=== PATIENT | female | born 2005 | race Caucasian/White ===

== ENCOUNTER 2023-05-12 08:18 | Emergency (ER) | payer OTHER, SELFPAY ==
[2023-05-12 08:20] VITALS: BP 140/93; PULSE 89; RESP 16; TEMP 35.6; O2SAT 100; BMI 30.7
--- NOTE | 2023-05-12 08:53 | ED.VIS.GI ---
HPI HPI - GI History of Present Illness Chief Complaint: Abd Pain Narrative Narrative: 18-year-old female present with epigastric pain. She states yesterday she had a lunch bowl for lunch. She drinks pop. She states last evening she ate pizza for dinner. She woke up in the middle the night with gastric pain. She had nausea and vomiting. She describes esophageal burning. No history of GERD. She states this has been worsening over the last couple of weeks. She states she was on the Internet googling things and came to the ER as she was concerned. No fever at home. No medical problems. No history of surgery in the abdomen. No concern for or UTI. PFSH PFSH Home Medications drospirenone 3 mg-ethinyl estradiol 0.03 mg tablet tab 05/12/23 [History Last Taken 05/11/23] famotidine 20 mg tablet (Pepcid AC) 20 mg PO BID #14 tabs 05/12/23 [Rx Last Taken Unknown] ondansetron 4 mg disintegrating tablet 4 mg PO Q8H PRN PRN Nausea #20 tabs 05/12/23 [Rx Last Taken Unknown] sucralfate 100 mg/mL oral suspension (Carafate) 10 ml PO BID #200 mL 05/12/23 [Rx Last Taken Unknown] Allergy/AdvReac Type Severity Reaction Status Date / Time No Known Allergies Allergy Verified 05/12/23 08:19 Social History Smoking Status: Never smoker alcohol intake: never ROS ROS ED Constitutional Constitutional ED: Denies chills, fever(s) or sweats Eyes Eyes: Denies blurry vision or change in vision ENT ENT ED: Denies ear pain or sore throat Cardiovascular Cardiovascular: Denies chest pain, palpitations or racing heartbeat Respiratory/Chest Respiratory/Chest: Denies cough, dyspnea or sputum Gastrointestinal Gastrointestinal: Reports abdominal pain, nausea and vomiting; Denies constipation or diarrhea Genitourinary Genitourinary ED: Denies dysuria, hematuria or urinary frequency Musculoskeletal Musculoskeletal: Denies arthralgias, myalgias or neck pain Integumentary Denies abscess, Abrasions or rash Neurologic Neurologic: Denies headache(s), paresthesias or weakness Psychiatric Psychiatric: Denies anxiety, depression, suicidal ideation or suicidal thoughts Endocrine Endocrinology: Denies polydipsia or polyuria EXAM Physical Exam Const Vital Signs: 05/12/23 08:20 05/12/23 10:22 Temperature 96.1 F L Temperature Source Temporal Pulse Rate 89 64 Respiratory Rate 16 15 Blood Pressure 140/93 H 133/74 H Blood Pressure Mean 108 93 Pulse Ox 100 99 Oxygen Delivery Method Room Air Room Air Positive well nourished General Appearance ED: NAD; Negative for pallor HEENT normocephalic and atraumatic Eyes PERRL and EOMs intact bilaterally Neck no lymphadenopathy Resp normal respiratory effort Cardio regular rate and regular rhythm GI GI Narrative: Very mild epigastric pain. Negative Mcduffie sign. Neuro CN's II-XII intact bilaterally and moves all extremities Sensorium / Orientation: alert, oriented to person, oriented to place and oriented to time Psych mental status grossly normal Skin General Skin Exam: Negative for jaundice or pallor MDM MDM MDM Narrative Medical decision making narrative: Patient presenting with epigastric pain. We discussed her diet as she drinks a lot of pop and ate pizza last night which is the most likely cause of her symptoms given she has normal vitals and a normal exam. Patient given Zofran and GI cocktail. Will reevaluate. Patient was reevaluated and was doing well and she drank some Gatorade which made her stomach hurt again. She was then given Carafate and monitored. On reevaluation she is resting and states her stomach pain is gone. I will start her on Pepcid, Zofran. She is given Carafate to take as needed. She states has been to modify her diet so she does not want to start a PPI currently. Return precautions were discussed. She is going to follow-up with her primary care physician. Impression: 1. Gastritis 2. Nausea/vomiting Discharge Plan Triage Chief Complaint: Abd Pain ED Provider: Jagdish Monsivais Dx/Rx/DC Orders Instructions: ED Gastritis (Adult) Prescriptions: New famotidine [Pepcid AC] 20 mg tablet 20 mg PO BID Qty: 14 0RF sucralfate [Carafate] 100 mg/mL suspension 10 ml PO BID Qty: 200 0RF ondansetron 4 mg tablet,disintegrating 4 mg PO Q8H PRN PRN (Reason: Nausea) Qty: 20 0RF No Action drospirenone-ethinyl estradiol 3-0.03 mg tablet Primary Care Provider: Lisbet Matrinez Referrals: Lisbet Martinez MD [Primary Care Provider] - Disposition Disposition: Home, Self Care
[2023-05-12] MEDS: Ondansetron ODT 4 MG Tablet PO (09:01)
[2023-05-12] MEDS: Mag Hydrox/Al Hydrox/Simeth 30 ML UDC PO (09:02)
--- OUTSIDE RECORDS SUMMARY | 2023-05-12 09:02 | XMS RPT_ITS | CCD ---
Author Name Unknown Address [address] [place] [address] Organization [facility] Care Team Providers Care Liquefaction And Regasification Helper Name Role Phone Constantine Adams Unavailable Unavailable Primary Care Provider Unavailabl e SELF Referring Unavailable PABLO, LOREN Attending Unavailable ENG, DEVON Referring Unavailable PABLO, LOREN Referring Unavailable Medications Current Medications Medication Drug Class(es) Dates Sig (Normalized) Sig (Original) drospirenone / Ethinyl Estradiol (6 sources) Progestin, Estrogen Start: 05-03-2023 End: 04-03-2024 take 1 tablet by mouth once daily Drospirenone-Ethi nyl Estradiol (ZUMANDIMINE, 28,) 3-0.03 mg per tablet Take 1 tablet by mouth once daily. 84 tablet 3 05/03/2023 04/03/2024 Active Completed/Discontinued Medications Medication Drug Class(es) Dates Sig (Normalized) Sig (Original) spironolactone 100 mg oral tablet (4 sources) Aldosterone Antagonist Start: 08-22-2022 End: 05-03-2023 take 1 tablet by mouth once daily spironolactone (ALDACTONE) 100 mg tablet Take 1 tablet by mouth once daily. 90 tablet 1 12/28/2022 05/03/2023 Discontinued Problems Active Problems Problem Classification Problem Date Documented Date Episodic/Chronic Contraceptive and procreative management (2 sources) Oral contraception; Translations: [Encounter for surveillance of contraceptive pills] Episodic Residual codes; unclassified (1 source) Family history of breast cancer; Translations: [Family history of malignant neoplasm of breast] Episodic Unclassified (2 sources) History and physical examination, sports participation ; Translations: [Encounter for examination for participation in sport] Onset: 01-28-2017 01-28-2017 Past or Other Problems Problem Classification Problem Date Documented Da te Episodic/Chronic Residual codes; unclassified (1 source) Family history of malignant neoplasm of breast; Translations: [Family history of malignant neoplasm of breast] Onset: 06-05-2022 Episodic Results Test Name Value Interpretation Reference Range Facil ity Vital Signs Date Time Vital Sign Value Performing Clinician Alesha gamboa 05-03-2023 12:48-0500 Body height 160 cm Loren Indianapolis SALES REPRESENTATIVE [employer].PHOTOENGRAVER APPRENTICE Work Phone: [facility] 05-03-2023 12:48-0500 Body weight 80.29 kg Loren Indianapolis SALES REPRESENTATIVE [employer].PHOTOENGRAVER APPRENTICE Work Phone: [facility] 05-03-2023 12:48-0500 Diastolic blood pressure 76 mm[Hg] Loren Indianapolis SALES REPRESENTATIVE [employer].PHOTOENGRAVER APPRENTICE Work Phone: [facility] 05-03-2023 12:48-0500 Systolic blood pressure 108 mm[Hg] Loren Indianapolis SALES REPRESENTATIVE [employer].PHOTOENGRAVER APPRENTICE Work Phone: [facility] 04-17-2022 08:31-0500 Body height 160 cm Loren Pablo SALES REPRESENTATIVE [employer].PHOTOENGRAVER APPRENTICE Work Phone: [facility] 04-17-2022 08:31-0500 Body weight 81.19 kg Loren Indianapolis SALES REPRESENTATIVE [employer].PHOTOENGRAVER APPRENTICE Work Phone: [facility] 04-17-2022 08:31-0500 Diastolic blood pressure 84 mm[Hg] Loren Pablo SALES REPRESENTATIVE [employer].PHOTOENGRAVER APPRENTICE Work Phone: [facility] 04-17-2022 08:31-0500 Heart rate 102 /min Loren Indianapolis SALES REPRESENTATIVE [employer].PHOTOENGRAVER APPRENTICE Work Phone: [facility] 04-17-2022 08:31-0500 Respiratory rate 14 /min Loren Pablo SALES REPRESENTATIVE [employer].PHOTOENGRAVER APPRENTICE Work Phone: [facility] 04-17-2022 08:31-0500 SaO2% (BldA) [Mass fraction] 99 % Loren Pablo SALES REPRESENTATIVE [employer].PHOTOENGRAVER APPRENTICE Work Phone: [facility] 04-17-2022 08:31-0500 Systolic blood pressure 136 mm[Hg] Loren Indianapolis SALES REPRESENTATIVE [employer].PHOTOENGRAVER APPRENTICE Work Phone: [facility] 01-28-2017 13:10-0500 BMI (Body Mass Index) 27.46 kg/m2 Constantine [facility] Work Phone: 01-28-2017 13:10-0500 BP Diastolic 72 mm[Hg] Constantine [facility] Work Phone: 01-28-2017 13:10-0500 BP Systolic 114 mm[Hg] Constantine [facility] Work Phone: 01-28-2017 13:10-0500 Height 162.56 cm Constantine [facility] Work Phone: 01-28-2017 13:10-0500 Pulse (Heart Rate) 81 /min Constantine [facility] Work Phone: 01-28-2017 13:10-0500 Respiratory Rate 14 /min Constantine [facility] Work Phone: 01-28-2017 13:10-0500 Weight 72.58 kg Constantine [facility] Work Phone: Encounters Encounter Date Encounter Type Care Provider Facility Start: 05-03-2023 End: 05-03-2023 ambulatory SELF Facility:[facility] Start: 05-03-2023 End: 05-03-2023 Patient encounter procedure Loren Ramirez APRN.CNP Work Phone: OB/Gynecology Plan of Treatment Date Care Activity Detail Author Start: 12-21-2025 Urine microalbumin profile DTaP,Tdap,Td Vaccine (3 - Td or Tdap) [facility] Start: 03-26-2023 Depression Assessment Depression Assessment [facility] Start: 11-24-2022 Influenza vaccination [facility] Start: 03-26-2022 DEPRESSION ASSESSMENT DEPRESSION ASSESSMENT [facility] Start: 2022 Urine microalbumin profile [facility] Start: 11-24-2021 Influenza vaccination INFLUENZA (#1) [facility] Start: 2021 CHLAMYDIA SCREENING (18-24) CHLAMYDIA SCREENING (18-24) [facility] Start: 2021 GC (GONORRHEA) SCREENING (18-24) GC (GONORRHEA) SCREENING (18-24) [facility] Start: 2021 HEPATITIS C SCREENING HEPATITIS C SCREENING [facility] Start: 2021 Hepatitis C screening Hepatitis C Screening [facility] Start: 2021 HIV SCREENING HIV SCREENING [facility] Start: 2021 HIV screening HIV Screening [facility] Start: 2021 Screening for Chlamydia trachomatis Chlamydia Screening (18-) [facility] Start: 2019 Meningococcal B Vaccine: Consider Based On Risk (1 of 2 - Patient Seeks Protection) Meningococcal B Vaccine: Consider Based On Risk (1 of 2 - Patient Seeks Protection) [facility] Start: 2017 PEDS TO ADULT TRANSITION ANNUAL ASSESSMENT PEDS TO ADULT TRANSITION ANNUAL ASSESSMENT [facility] Start: 01-28-2017 End: 01-28-2017 Appointment Appointment [facility] Work Phone: Start: 2015 PEDS TO ADULT TRANSITION INITIAL DISCUSSION PEDS TO ADULT TRANSITION INITIAL DISCUSSION [facility] Start: 2014 HPV VACCINE (1 - 2-dose series) HPV VACCINE (1 - 2-dose series) [facility] Start: 2013 MENINGOCOCCAL B: Consider based on risk (1 of 2 - Risk Bexsero 2-dose series) MENINGOCOCCAL B: Consider based on risk (1 of 2 - Risk Bexsero 2-dose series) [facility] Start: 2012 HPV Vaccine (1 - 2-dose series) HPV Vaccine (1 - 2-dose series) [facility] Start: 04-21-2004 Hepatitis B Vaccine (2 of 3 - 3-dose series) Hepatitis B Vaccine (2 of 3 - 3-dose series) [facility] Start: 2003 COVID-19 VACCINE (#1) COVID-19 VACCINE (#1) [facility] Start: 2003 HEPATITIS B (1 of 3 - 3-dose series) HEPATITIS B (1 of 3 - 3-dose series) [facility] Start: 2003 Hepatitis B Vaccine (1 of 3 - 3-dose series) Hepatitis B Vaccine (1 of 3 - 3-dose series) [facility] Work Phone: [facility] Immunizations Immunization Date Immunization Notes Care Provider Doug john 12-21-2020 meningococcal oligosaccharide (groups A, C, Y and W-135) diphtheria toxoid conjugate vaccine (MCV4O) Loren Indianapolis SALES REPRESENTATIVE [employer].PHOTOENGRAVER APPRENTICE Work Phone: [facility] 12-22-2015 meningococcal polysaccharide (groups A, C, Y and W-135) diphtheria toxoid conjugate vaccine (MCV4P) Loren Indianapolis SALES REPRESENTATIVE [employer].PHOTOENGRAVER APPRENTICE Work Phone: [facility] 12-22-2015 tetanus toxoid, redu hortensia diphtheria toxoid, and acellular pertussis vaccine, adsorbed Loren Indianapolis SALES REPRESENTATIVE [employer].PHOTOENGRAVER APPRENTICE Work Phone: [facility] 04-20-2009 novel Influenza-H1N1 -09, live virus for nasal administration Loren Indianapolis SALES REPRESENTATIVE [employer].PHOTOENGRAVER APPRENTICE Work Phone: [facility] 04-20-2009 influenza virus vacc ine, unspecified formulation Loren Pablo SALES REPRESENTATIVE [employer].PHOTOENGRAVER APPRENTICE Work Phone: [facility] 02-04-2009 novel Influenza-H1N1 -09, live virus for nasal administration Loren Indianapolis SALES REPRESENTATIVE [employer].PHOTOENGRAVER APPRENTICE Work Phone: [facility] 06-23-2004 diphtheria, tetanus toxoids and acellular pertussis vaccine, unspecified formulation Loren Pablo SALES REPRESENTATIVE [employer].PHOTOENGRAVER APPRENTICE Work Phone: [facility] 2004 haemophilus influenz ae type b conjugate and Hepatitis B vaccine Loren Indianapolis SALES REPRESENTATIVE [employer].PHOTOENGRAVER APPRENTICE Work Phone: [facility] 2004 measles, mumps and r ubella virus vaccine Loren Pablo SALES REPRESENTATIVE [employer].PHOTOENGRAVER APPRENTICE Work Phone: [facility] 2004 pneumococcal conjuga te vaccine, 7 valent Loren Indianapolis SALES REPRESENTATIVE [employer].PHOTOENGRAVER APPRENTICE Work Phone: [facility] 2004 varicella virus vaccine Jayro e Pablo SALES REPRESENTATIVE [employer].PHOTOENGRAVER APPRENTICE Work Phone: [facility] Payers Date Payer Category Payer Unknown [facility] [employer] [place] [employer] [id number] 2022-Present [phone] [address] [place] [address] PPO [id number] 2022 Unknown [id number] Social History Date Type Detail Facility Start: 02-10-2015 End: 05-03-2023 Tobacco smoking status NHIS Never smoked tobacco [facility] Work Phone: Start: 04-17-2022 End: 05-03-2023 Alcohol intake Lifetime non-drinker (finding) [facility] Start: 2003 Sex Assigned At Not on file [facility] Start: 05-22-2022 End: 05-03-2023 History of Social function [facility] Start: 05-22-2022 End: 05-03-2023 Tobacco use panel [facility] National Score (1-100), lower number is lower risk 49 [facility] Start: 05-03-2023 Tobacco use and exposure Smokeless tobacco non-user [facility] Progress note 05-03-2023 Note Date & Type Note Facility 05-03-2023 Note HNO ID: [id number] Author: LOREN RAMIREZ APRN.PHOTOENGRAVER APPRENTICE Service: ? Author Type: Nurse Practitioner Type: Progress Notes Filed: 05/03/2023 13:05 Note Text: Howard is a 18 year old who presents for an annual gynecologic exam without complaints. Presents: alone Menses: cycles every 21-24 days and 5-7 days of flow. Contraception: combined hormonal contraceptives HPV vaccine: unsure Last pap smear: never Sexually active: Yes Patient concerns for STD exposure: No. Pain with intercourse: No Postcoital bleeding: No OB History T0 L0 SAB0 IAB0 Ectopic0 Multiple0 Live Births0 Snap Attacher History LMP: 04/15/2023 (Exact Date), Having periods Age at Menarche: Age at First : Age at Menopause: Snap Attacher History Comments: Sexual Activity: Yes; Male Contraception: Pill PAST MEDICAL HISTORY Diagnosis Date NEGATIVE MEDICAL HISTORY PAST SURGICAL HISTORY Procedure Laterality Date NONE FAMILY HISTORY Problem Relation Age of Onset Breast Cancer Mother 49 at 50 from heart attack Heart Attack Mother None Father None Maternal Grandmother Breast Cancer Maternal Grandmother 60's, metastatic None Maternal Grandfather None Paternal Grandmother None Paternal Grandfather None Half-brother SOCIAL HISTORY Social History Tobacco Use Smoking status: Never Smokeless tobacco: Never Vaping Use Vaping Use: Never used Substance Use Topics Alcohol use: Never Drug use: Never REVIEW OF SYSTEMS Abdomen: No bloating, early satiety, indigestion, or increased flatulence. No abdominal pain, nausea, vomiting, diarrhea, or constipation. Bladder: No dysuria, gross hematuria, urinary frequency, urinary urgency, or incontinence. Breast: No breast lumps, nipple d/c, overlying skin changes, redness or skin retraction. Allergies and current medication updated:Yes EXAM: BP 108/76 Ht 5' 3 (1.60m) Wt 177 lb (80.3kg) LMP 04/15/2023 BMI 31.36 kg/(m2). GENERAL: pleasant, in no apparent distress HEENT: Normocephalic, atraumatic, mucus membranes moist, and no lesions CHEST: Normal inspiratory effort NEURO: alert and oriented x3,exam grossly non-focal EXTREMITIES: normal ASSESSMENT/PLAN: 1) Health maintenance: Pap starting at the age of 21. Safe sex practices reviewed. 2) Contraception: combined hormonal contraceptives. Contraceptive options reviewed and information provided. 3) STD screening: Declined STD check. 4) Follow up one year or sooner as needed. Loren Ramirez APRN.KIKE [facility] History of Present illness Narrative 05-03-2023 Loren Ramirez APRN.PHOTOENGRAVER APPRENTICE - 05/03/2023 12:46 PM EST Note Date & Type Note Facility 05-03-2023 History of Presen t illness Narrative Howard is a 18 year old who presents for an annual gynecologic exam without complaints. Presents: alone Menses: cycles every 21-24 days and 5-7 days of flow. Contraception: combined hormonal contraceptives HPV vaccine: unsure Last pap smear: never Sexually active: Yes Patient concerns for STD exposure: No. Pain with intercourse: No Postcoital bleeding: No OB History T0 L0 SAB0 IAB0 Ectopic0 Multiple0 Live Births0 Snap Attacher History LMP: 04/15/2023 (Exact Date), Having periods Age at Menarche: Age at First : Age at Menopause: Snap Attacher History Comments: Sexual Activity: Yes; Male Contraception: Pill PAST MEDICAL HISTORY Diagnosis Date NEGATIVE MEDICAL HISTORY PAST SURGICAL HISTORY Procedure Laterality Date NONE FAMILY HISTORY Problem Relation Age of Onset Breast Cancer Mother 49 at 50 from heart attack Heart Attack Mother None Father None Maternal Grandmother Breast Cancer Maternal Grandmother 60's, metastatic None Maternal Grandfather None Paternal Grandmother None Paternal Grandfather None Half-brother SOCIAL HISTORY Social History Tobacco Use Smoking status: Never Smokeless tobacco: Never Vaping Use Vaping Use: Never used Substance Use Topics Alcohol use: Never Drug use: Never REVIEW OF SYSTEMS Abdomen: No bloating, early satiety, indigestion, or increased flatulence. No abdominal pain, nausea, vomiting, diarrhea, or constipation. Bladder: No dysuria, gross hematuria, urinary frequency, urinary urgency, or incontinence. Breast: No breast lumps, nipple d/c, overlying skin changes, redness or skin retraction. Allergies and current medication updated:Yes EXAM: BP 108/76 Ht 5' 3 (1.60m) Wt 177 lb (80.3kg) LMP 04/15/2023 BMI 31.36 kg/(m^2). GENERAL: pleasant, in no apparent distress HEENT: Normocephalic, atraumatic, mucus membranes moist, and no lesions CHEST: Normal inspiratory effort NEURO: alert and oriented x3,exam grossly non-focal EXTREMITIES: normal ASSESSMENT/PLAN: 1) Health maintenance: Pap starting at the age of 21. Safe sex practices reviewed. 2) Contraception: combined hormonal contraceptives. Contraceptive options reviewed and information provided. 3) STD screening: Declined STD check. 4) Follow up one year or sooner as needed. Loren Ramirez APRN.CNP documented in this encounter [facility] Note 12-28-2022 Telephone Encounter - Marly Lopez RN - 12/28/2022 11:19 AM EDT Note Date & Type Note Facility 12-28-2022 Miscellaneous Notes Formattin g of this note is different from the original. Last annual with RM 04/17/22. Requested Prescriptions Pending Prescriptions Disp Refills spironolactone (ALDACTONE) 100 mg tablet 90 tablet 1 Sig: Take 1 tablet by mouth once daily. Marly Lopez RN documented in this encounter [facility] Note 06-27-2022 Telephone Encounter - Genoveva Bhatt, [facility] - 06/27/2022 12:00 PM EDTTelephone Encounter - Genoveva Bhatt, [facility] - 06/27/2022 10:21 AM EDT Note Date & Type Note Facility 06-27-2022 Miscellaneous Notes Formattin g of this note might be different from the original. Patient name and was confirmed at initiation of discussion. 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 LIZZIE-Associated cancer risk: Women who have an LIZZIE pathogenic/likely pathogenic variant have an increased lifetime risk of developing breast cancer (15-40%). Men with LIZZIE pathogenic/likely pathogenic variants have an increased risk of prostate cancer compared to the general population. Additionally, an increased risk of pancreatic cancer has been noted in some families with LIZZIE pathogenic/likely pathogenic variants (5-10% lifetime risk). Please keep in mind that the cancer risks are subject to change as more information is learned about the LIZZIE gene. Female Breast Cancer Management (NCCN Guidelines) Screening: Annual mammogram beginning at age 40, and consider annual breast MRI beginning at age 30-35, or 10 years younger than earliest breast cancer diagnosis in the family. Risk-reducing mastectomy: Insufficient evidence, manage based on family history. Radiation therapy: Insufficient evidence to recommend against radiation therapy. No specific guidelines currently exist for male breast cancer. While there may be some evidence to suggest an increased risk of ovarian cancer (<3% lifetime risk), there is not enough evidence at this time to warrant risk reducing surgery. Since the patient does not have a first-degree relative with pancreatic cancer, screening for pancreatic cancer is not indicated at this time. Male Prostate Cancer Screening (NCCN Guidelines) Consider annual prostate cancer screening beginning at age 40 The patient was encouraged to keep us updated with any changes to her personal or family history of cancer as this may affect her risk assessment and screening recommendations. REPRODUCTIVE OPTIONS For patients of reproductive age, advise about options for diagnosis and assisted reproduction including pre-implantation genetic diagnosis. Discussion should include known risks, limitations, and benefits of these technologies. LIZZIE pathogenic/likely pathogenic variants are associated with the rare autosomal recessive condition, Ataxia-Telangiectasia. Thus, for this gene, consideration would be given to carrier testing the partner for mutations in the same gene if it would inform reproductive decision-making and/or risk assessment and management. Patient was encouraged to pursue discussions with appropriate care providers in Medical Breast Services (ph. [phone]) as well as their primary care provider to review medical management options and determine the best plan for her own care. Patient declined referral to medical breast services at this time, she will wait until she's closer to age 28 and meet with them then. Please see attached letter for further discussion. RUTHY Carrasquillo Licensed, Certified Genetic Counselor I left a voicemail informing the patient that genetic testing results are available and provided my callback number. RUTHY Carrasquillo Licensed, Certified Genetic Counselor documented in this encounter [facility] Progress note 05-22-2022 Note Date & Type Note Facility 05-22-2022 Note HNO ID: [id number] Author: RUTHY Carrasquillo Service: ? Author Type: Genetic Counselor Type: Progress Notes Filed: 06/29/2022 3:43 PM Note Text: [facility] Consultation Note Genetic Counselor: Genoveva Bhatt MS, [facility] Patient: Howard Crowder Patient Name and confirmed at initiation of visit. Patient joined today by her boyfriend. HIGH LEVEL SUMMARY: The patient's family history is potentially suggestive of a hereditary cancer syndrome. The patient provided informed consent for Custom Cancer Panel through [employer]. Results are expected in 2-4 weeks. IDENTIFICATION AND CHIEF COMPLAINT: Loren Ramirez APRN.PHOTOENGRAVER APPRENTICE requested a consultation for genetic counseling and risk assessment for Howard Crowder, a 17 year old female, for discussion of her family history of breast cancer. She presents to clinic today to discuss the possibility of a genetic predisposition to cancer, and to further clarify her risks, as well as her family members' risks for cancer. HISTORY OF PRESENT ILLNESS: Howard Crowder is a 17 year old female with no personal history of cancer. PAST MEDICAL HISTORY Diagnosis Date NEGATIVE MEDICAL HISTORY PAST SURGICAL HISTORY Procedure Laterality Date NONE CANCER SURVEILLANCE HISTORY: Mammograms: No Breast MRI's: No Breast Biopsies: No Colonoscopy: No EGD: No GI Polyps: N/A Pelvic Exam: No Pap Smear: No Transvaginal Ultrasound: No Dermatology: No REPRODUCTIVE HISTORY AND PERSONAL RISK ASSESSMENT FACTORS: Weight: Last 1 Encounter Wt Readings: Date: Wt: 04/17/2022 81.2 kg (179 lb) (95 %, Z= 1.61)* Height: Last 1 Encounter Ht Readings: Date: Ht: 04/17/2022 160 cm (5' 3 ) (31 %, Z= -0.50)* Menarche was at age 12-13 Premenopausal Uterus Intact: Yes Ovaries Intact: Yes A0 Breast fed: N/A She has not previously undergone treatment for infertility. She used oral contraception pills for approximately 5 years total She has not used HRT in the past. SOCIAL HISTORY: Social History Tobacco Use Smoking status: Never Vaping Use Vaping Use: Never used Substance Use Topics Alcohol use: Never Drug use: Never FAMILY HISTORY: We obtained a detailed, 4-generation family history. Significant diagnoses are listed below: FAMILY HISTORY Problem Relation Age of Onset Breast Cancer Mother 49 at 50 from heart attack Heart Attack Mother None Father None Half-brother None Maternal Grandmother Breast Cancer Maternal Grandmother 60's, metastatic None Maternal Grandfather None Paternal Grandmother None Paternal Grandfather The patient's maternal ancestors are of descent and paternal ancestors are of descent. There is no Ashkenazi Caodaism ancestry. There is no known consanguinity. A copy of the patient's pedigree will be available under the scanned documents tab following today's visit. GENETIC COUNSELING RISK ASSESSMENT, DISCUSSION, AND SUGGESTED FOLLOW UP: We reviewed the natural history and genetic etiology of sporadic, familial and hereditary cancer syndromes. The patient's family history is potentially suggestive of: a hereditary cancer syndrome We discussed that the best person to begin with genetic testing is a family member with a history of cancer. Ms. Crowder's mother who was diagnosed with breast cancer would be the most appropriate relative for genetic testing. However, this relative is unavailable for testing. Therefore we discussed the limitations of interpreting tests results for an unaffected individual. The patient meets NCCN HBOC testing criteria since her mother had a personal history of breast cancer diagnosed <= 50 years of age. We discussed that identification of a hereditary cancer syndrome may help her care providers tailor her medical management. If a mutation is detected, the National Comprehensive Cancer Network and/or expert opinion recommendations could include increased cancer surveillance, prophylactic surgery, and chemopreventive options. If a mutation is detected, the patient will be referred back to the referring provider and to any additional appropriate care providers to discuss the relevant options. Inheritance of hereditary cancer syndromes was discussed with the patient. If a mutation is not found in the patient, this will decrease the likelihood of a hereditary cancer syndrome for the patient, however it cannot rule it out as the explanation for the family history of cancer. Cancer surveillance options would be discussed for the patient according to the appropriate standard National Comprehensive Cancer Network and [place] Cancer [employer] guidelines, with consideration of their personal and family history risk factors. In this case, the patient will be referred back to their care providers for discussions of management. Based on this assessment of the patient's (more content not included)... [facility] History of Present illness Narrative 04-17-2022 Loren Ramirez APRN.[facility] - 04/17/2022 8:25 AM EST Note Date & Type Note Facility 04-17-2022 History of Presen t illness Narrative Hot Die Press Feeder offered: Patient declinesaL Kiran is a 17 year old No obstetric history on file. who presents for an annual gynecologic exam without complaints. [facility] [address] is where she was getting pills from Presents: alone Menses: cycles every 21-24 days and 5-7 days of flow. Contraception: combined hormonal contraceptives HPV vaccine: unsure Last pap smear: never Sexually active: Yes History of STDS: None Patient concerns for STD exposure: No. Number of lifetime partners: 1 Pain with intercourse: No Postcoital bleeding: No OB History No obstetric history on file. 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 History Comments: Sexual Activity: Yes; Male Contraception: Pill PAST MEDICAL HISTORY Diagnosis Date NEGATIVE MEDICAL HISTORY PAST SURGICAL HISTORY Procedure Laterality Date NONE FAMILY HISTORY Problem Relation Age of Onset Breast Cancer Mother 49 at 50 from heart attack Heart Attack Mother None Father None Brother None Brother None Maternal Grandmother Breast Cancer Maternal Grandmother None Maternal Grandfather None Paternal Grandmother None Paternal Grandfather SOCIAL HISTORY Social History Tobacco Use Smoking status: Never Vaping Use Vaping Use: Never used Substance Use Topics Alcohol use: Never Drug use: Never REVIEW OF SYSTEMS Abdomen: No bloating, early satiety, indigestion, or increased flatulence. No abdominal pain, nausea, vomiting, diarrhea, or constipation. Bladder: No dysuria, gross hematuria, urinary frequency, urinary urgency, or incontinence. Breast: No breast lumps, nipple d/c, overlying skin changes, redness or skin retraction. Allergies and current medication updated:Yes EXAM: BP 136/84 Pulse 102 Resp 14 Ht 5' 3 (1.60m) Wt 179 lb (81.2kg) SpO2 99% LMP 04/06/2022 BMI 31.72 kg/(m^2). GENERAL: pleasant, in no apparent distress HEENT: Normocephalic, atraumatic, and no lesions CHEST: Normal inspiratory effort NEURO: alert and oriented x3,exam grossly non-focal EXTREMITIES: normal ASSESSMENT/PLAN: 1) Health maintenance: Pap starting at the age of 21. Nutrition, exercise, and routine health maintenance exams reviewed. 2) Contraception: combined hormonal contraceptives. Contraceptive options reviewed and information provided. 3) STD screening: Declined STD check. 4) Follow up one year or sooner as needed. Loren Ramirez APRN.CNP documented in this encounter [facility] Evaluation note Note Date & Type Note Facility documented in this encounter [facility] Evaluation note Note Date & Type Note Facility documented in this encounter [facility] Reason for Referral Specialty Diagnoses / Procedures Referred By Alyssa damian Referred To Contact Diagnoses Family history of malignant neoplasm of breast Procedures CONSULT TO [facility] CANCER GENETIC COUNSELING MEDICAL GENETICS COUNSELING EACH 30 MINUTES Loren Ramirez APRN.CNP [address] [place] [address] [facility] [place] [address] Referral ID Status Reason Start Date Expiration Date Visits Requested Visits Authorized [id number] Pending Review PCP Requested Referral Auto-Generate d Referral 04/17/2022 04/17/2023 1 1 Summary Purpose Family History No Family History Records Found Advance Directives No Advanced Directives Records Found Additional Source Comments Source Comments (unrecognize d section and content) In the event this informatio n is protected by the Federal Confidentiality of Alcohol and Drug Abuse Patient Records regulations: The Federal rules restrict any use of the information to criminally investigate or prosecute any alcohol or drug abuse patient[facility] the event this information is protected by the Federal Confidentiality of Alcohol and Drug Abuse Patient Records regulations: The Federal rules restrict any use of the information to criminally investigate or prosecute any alcohol or drug abuse patient.[facility] the event this information is protected by the Federal Confidentiality of Alcohol and Drug Abuse Patient Records regulations: The Federal rules restrict any use of the information to criminally investigate or prosecute any alcohol or drug abuse patient.[facility] the event this information is protected by the Federal Confidentiality of Alcohol and Drug Abuse Patient Records regulations: The Federal rules restrict any use of the information to criminally investigate or prosecute any alcohol or drug abuse patient.[facility] Reason for Visit (unrecogniz ed section and content) Reason Comments Results Genetic testing Reason Onset Date Comments Refill Request 12/28/2022 Reason Comments Yearly Exam INFORMATION SOURCE (unrecogn ized section and content) FOR RECORDS PERTAINING TO PATIENTS WHO ARE OR HAVE BEEN ENROLLED IN A CHEMICAL DEPENDENCY/SUBSTANCEABUSE PROGRAM, SOME INFORMATION MAY BE OMITTED. This clinical summary was aggregated from multiple sources. Caution should be exercised in using it in the provision of clinical care. This summary normalizes information from multiple sources, and as a consequence, information in this document may materially change the coding, format and clinical context of patient data. In addition, data may be omitted in some cases. CLINICAL DECISIONS SHOULD BE BASED ON THE PRIMARY CLINICAL RECORDS. [employer] provides no warranty or guarantee of the accuracy or completeness of information in this document.
--- NOTE | 2023-05-12 09:12 | ED.RN ---
PT VOMITED AFTER GI COCKTAIL. DOES STATES SHE FEELS BETTER. WILL OBSERVE
[2023-05-12 10:22] VITALS: BP 133/74; PULSE 64; RESP 15; O2SAT 99
[2023-05-12] MEDS: Sucralfate 1 GM Tablet PO (10:49)
[2023-05-12 11:18] VITALS: BP 130/74; PULSE 84; RESP 16; TEMP 36.2; O2SAT 99
== END 2023-05-12 11:24 | disposition home or self-care (01) ==
PROVIDERS: Emergency Provider Student in an Organized Health Care Education/Training Program; PCP Internal Medicine; Visit Provider Student in an Organized Health Care Education/Training Program
DX: K29.70 Gastritis, unspecified, without bleeding (principal); R11.2 Nausea with vomiting, unspecified
CPT/HCPCS: 99283

== ENCOUNTER → 2023-05-16 | Outpatient (CLI) | payer OTHER, SELFPAY ==
--- OUTSIDE RECORDS SUMMARY | 2023-05-16 13:17 | XMS RPT_ITS | CCD ---
Author Name Unknown Address [address] [place] [address] Organization [facility] Care Team Providers Care Nursery Teacher Name Role Phone Constantine Adams Unavailable Unavailable Primary Care Provider Unavailabl e SELF Referring Unavailable PABLO, LOREN Attending Unavailable ENGDEVON Referring Unavailable PABLO, LOREN Referring Unavailable Medications [...] 05-03-2023 12:48-0500 Body height 160 cm Loren Charlotte INVESTMENTS MANAGER.DIGITAL DESIGN ENGINEER Work Phone: [facility] 05-03-2023 12:48-0500 Body weight 80.29 kg Loren Charlotte INVESTMENTS MANAGER.DIGITAL DESIGN ENGINEER Work Phone: [facility] 05-03-2023 12:48-0500 Diastolic blood pressure 76 mm[Hg] Loren Charlotte INVESTMENTS MANAGER.DIGITAL DESIGN ENGINEER Work Phone: [facility] 05-03-2023 12:48-0500 Systolic blood pressure 108 mm[Hg] Loren Charlotte INVESTMENTS MANAGER.DIGITAL DESIGN ENGINEER Work Phone: [facility] 04-17-2022 08:31-0500 Body height 160 cm Loren Pablo INVESTMENTS MANAGER.DIGITAL DESIGN ENGINEER Work Phone: [facility] 04-17-2022 08:31-0500 Body weight 81.19 kg Loren Charlotte INVESTMENTS MANAGER.DIGITAL DESIGN ENGINEER Work Phone: [facility] 04-17-2022 08:31-0500 Diastolic blood pressure 84 mm[Hg] Loren Pablo INVESTMENTS MANAGER.DIGITAL DESIGN ENGINEER Work Phone: [facility] 04-17-2022 08:31-0500 Heart rate 102 /min Loren Charlotte INVESTMENTS MANAGER.DIGITAL DESIGN ENGINEER Work Phone: [facility] 04-17-2022 08:31-0500 Respiratory rate 14 /min Loren Pablo INVESTMENTS MANAGER.DIGITAL DESIGN ENGINEER Work Phone: [facility] 04-17-2022 08:31-0500 SaO2% (BldA) [Mass fraction] 99 % Loren Pablo INVESTMENTS MANAGER.DIGITAL DESIGN ENGINEER Work Phone: [facility] 04-17-2022 08:31-0500 Systolic blood pressure 136 mm[Hg] Loren Charlotte INVESTMENTS MANAGER.DIGITAL DESIGN ENGINEER Work Phone: [facility] 01-28-2017 13:10-0500 BMI (Body Mass Index) 27.46 kg/m2 Constantine [facility] Work Phone: 01-28-2017 13:10-0500 BP Diastolic 72 mm[Hg] Constantine [facility] Work Phone: 01-28-2017 13:10-0500 BP Systolic 114 mm[Hg] Constantine [facility] Work Phone: 01-28-2017 13:10-0500 Height 162.56 cm Constantine [facility] Work Phone: 01-28-2017 13:10-0500 Pulse (Heart Rate) 81 /min Constantine [facility] Work Phone: 01-28-2017 13:10-0500 Respiratory Rate 14 /min Constantine [facility] Work Phone: 01-28-2017 13:10-0500 Weight 72.58 kg Constantine [facility] Work Phone: Encounters Encounter Date Encounter Type Care Provider Facility Start: 05-03-2023 End: 05-03-2023 ambulatory SELF Facility:[facility] Start: 05-03-2023 End: 05-03-2023 Patient encounter procedure Loren Ramirez APRN.CNP Work Phone: OB/Gynecology Plan of Treatment Date Care Activity Detail Author Start: 12-21-2025 Urine microalbumin profile DTaP,Tdap,Td Vaccine (3 - Td or Tdap) [facility] Start: 03-26-2023 Depression Assessment Depression Assessment [facility] Start: 11-24-2022 Influenza vaccination [facility] Start: 03-26-2022 DEPRESSION ASSESSMENT DEPRESSION ASSESSMENT [facility] Start: 2022 Urine microalbumin profile [facility] Start: 11-24-2021 Influenza vaccination INFLUENZA (#1) [facility] Start: 2021 CHLAMYDIA SCREENING (18-24) CHLAMYDIA SCREENING (18-24) [facility] Start: 2021 GC (GONORRHEA) SCREENING (18-24) GC (GONORRHEA) SCREENING (18-24) [facility] Start: 2021 HEPATITIS C SCREENING HEPATITIS C SCREENING [facility] Start: 2021 Hepatitis C screening Hepatitis C Screening [facility] Start: 2021 HIV SCREENING HIV SCREENING [facility] Start: 2021 HIV screening HIV Screening [facility] Start: 2021 Screening for Chlamydia trachomatis Chlamydia Screening (18-) [facility] Start: 2019 Meningococcal B Vaccine: Consider Based On Risk (1 of 2 - Patient Seeks Protection) Meningococcal B Vaccine: Consider Based On Risk (1 of 2 - Patient Seeks Protection) [facility] Start: 2017 PEDS TO ADULT TRANSITION ANNUAL ASSESSMENT PEDS TO ADULT TRANSITION ANNUAL ASSESSMENT [facility] Start: 01-28-2017 End: 01-28-2017 Appointment Appointment [facility] Work Phone: Start: 2015 PEDS TO ADULT TRANSITION INITIAL DISCUSSION PEDS TO ADULT TRANSITION INITIAL DISCUSSION [facility] Start: 2014 HPV VACCINE (1 - 2-dose series) HPV VACCINE (1 - 2-dose series) [facility] Start: 2013 MENINGOCOCCAL B: Consider based on risk (1 of 2 - Risk Bexsero 2-dose series) MENINGOCOCCAL B: Consider based on risk (1 of 2 - Risk Bexsero 2-dose series) [facility] Start: 2012 HPV Vaccine (1 - 2-dose series) HPV Vaccine (1 - 2-dose series) [facility] Start: 04-21-2004 Hepatitis B Vaccine (2 of 3 - 3-dose series) Hepatitis B Vaccine (2 of 3 - 3-dose series) [facility] Start: 2003 COVID-19 VACCINE (#1) COVID-19 VACCINE (#1) [facility] Start: 2003 HEPATITIS B (1 of 3 - 3-dose series) HEPATITIS B (1 of 3 - 3-dose series) [facility] Start: 2003 Hepatitis B Vaccine (1 of 3 - 3-dose series) Hepatitis B Vaccine (1 of 3 - 3-dose series) [facility] Work Phone: [facility] Immunizations Immunization Date Immunization Notes Care Provider Doug john 12-21-2020 meningococcal oligosaccharide (groups A, C, Y and W-135) diphtheria toxoid conjugate vaccine (MCV4O) Loren Charlotte INVESTMENTS MANAGER.DIGITAL DESIGN ENGINEER Work Phone: [facility] 12-22-2015 meningococcal polysaccharide (groups A, C, Y and W-135) diphtheria toxoid conjugate vaccine (MCV4P) Loren Charlotte INVESTMENTS MANAGER.DIGITAL DESIGN ENGINEER Work Phone: [facility] 12-22-2015 tetanus toxoid, redu hortensia diphtheria toxoid, and acellular pertussis vaccine, adsorbed Loren Charlotte INVESTMENTS MANAGER.DIGITAL DESIGN ENGINEER Work Phone: [facility] 04-20-2009 novel Influenza-H1N1 -09, live virus for nasal administration Loren Charlotte INVESTMENTS MANAGER.DIGITAL DESIGN ENGINEER Work Phone: [facility] 04-20-2009 influenza virus vacc ine, unspecified formulation Loren Pablo INVESTMENTS MANAGER.DIGITAL DESIGN ENGINEER Work Phone: [facility] 02-04-2009 novel Influenza-H1N1 -09, live virus for nasal administration Loren Charlotte INVESTMENTS MANAGER.DIGITAL DESIGN ENGINEER Work Phone: [facility] 06-23-2004 diphtheria, tetanus toxoids and acellular pertussis vaccine, unspecified formulation Loren Pablo INVESTMENTS MANAGER.DIGITAL DESIGN ENGINEER Work Phone: [facility] 2004 haemophilus influenz ae type b conjugate and Hepatitis B vaccine Loren Charlotte INVESTMENTS MANAGER.DIGITAL DESIGN ENGINEER Work Phone: [facility] 2004 measles, mumps and r ubella virus vaccine Loren Pablo INVESTMENTS MANAGER.DIGITAL DESIGN ENGINEER Work Phone: [facility] 2004 pneumococcal conjuga te vaccine, 7 valent Loren Charlotte INVESTMENTS MANAGER.DIGITAL DESIGN ENGINEER Work Phone: [facility] 2004 varicella virus vaccine Jayro e Pablo INVESTMENTS MANAGER.DIGITAL DESIGN ENGINEER Work Phone: [facility] Payers Date Payer Category Payer Unknown [facility] [employer] [place] [employer] [id number] 2022-Present [phone] [address] [place] [address] PPO [id number] 2022 Unknown [id number] Social History Date Type Detail Facility Start: 02-10-2015 End: 05-03-2023 Tobacco smoking status NHIS Never smoked tobacco [facility] Work Phone: Start: 04-17-2022 End: 05-03-2023 Alcohol intake Lifetime non-drinker (finding) [facility] Start: 2003 Sex Assigned At Not on file [facility] Start: 05-22-2022 End: 05-03-2023 History of Social function [facility] Start: 05-22-2022 End: 05-03-2023 Tobacco use panel [facility] National Score (1-100), lower number is lower risk 49 [facility] Start: 05-03-2023 Tobacco use and exposure Smokeless tobacco non-user [facility] Progress note 05-03-2023 Note Date & Type Note Facility 05-03-2023 Note HNO ID: [id number] Author: LOREN RAMIREZ APRN.DIGITAL DESIGN ENGINEER Service: ? Author Type: Nurse Practitioner Type: [...] L0 SAB0 IAB0 Ectopic0 Multiple0 Live Births0 Traffic Incident Management Manager History LMP: 04/15/2023 (Exact Date), Having periods Age at Menarche: Age at First : Age at Menopause: Traffic Incident Management Manager History Comments: Sexual Activity: Yes; Male Contraception: [...] or sooner as needed. Loren Ramirez APRN.[facility] History of Present illness Narrative 05-03-2023 Loren Ramirez APRN.DIGITAL DESIGN ENGINEER - 05/03/2023 12:46 PM EST Note Date [...] L0 SAB0 IAB0 Ectopic0 Multiple0 Live Births0 Traffic Incident Management Manager History LMP: 04/15/2023 (Exact Date), Having periods Age at Menarche: Age at First : Age at Menopause: Traffic Incident Management Manager History Comments: Sexual Activity: Yes; Male Contraception: [...] Loren Ramirez APRN.CNP documented in this encounter [facility] Note 12-28-2022 Telephone Encounter - Marly Lopez [...] Marly Lopez RN documented in this encounter [facility] Note 06-27-2022 Telephone Encounter - Genoveva Bhatt, [facility] - 06/27/2022 12:00 PM EDTTelephone Encounter - Genoveva Bhatt, [facility] - 06/27/2022 10:21 AM EDT Note Date & Type Note Facility 06-27-2022 Miscellaneous Notes Formattin g of this note might be different from the original. Patient name and was confirmed at initiation of discussion. 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 This result confirms a diagnosis of LIZZIE-associated [...] care providers in [facility] (ph. [phone]) as well as their primary care provider [...] Certified Genetic Counselor documented in this encounter [facility] Progress note 05-22-2022 Note Date & Type Note Facility 05-22-2022 Note HNO ID: [id number] Author: RUTHY Carrasquillo Service: ? Author Type: Genetic Counselor Type: Progress Notes Filed: 06/29/2022 3:43 PM Note Text: [facility] Consultation Note Genetic Counselor: Genoveva Bhatt MS, [facility] Patient: Howard Crowder Patient Name and confirmed at initiation of visit. Patient joined today by her boyfriend. HIGH LEVEL SUMMARY: The patient's family history is potentially suggestive of a hereditary cancer syndrome. The patient provided informed consent for Custom Cancer Panel through [employer]. Results are expected in 2-4 weeks. IDENTIFICATION AND CHIEF COMPLAINT: Loren Ramirez APRN.DIGITAL DESIGN ENGINEER requested a consultation for genetic counseling and [...] are of descent. There is no Ashkenazi Rastafarian ancestry. There is no known consanguinity. A [...] appropriate standard National Comprehensive Cancer Network and [place] [employer] guidelines, with consideration of their personal and family history risk factors. In this case, the patient will be referred back to their care providers for discussions of management. Based on this assessment of the patient's (more content not included)... [facility] History of Present illness Narrative 04-17-2022 Loren Ramirez APRN.[facility] - 04/17/2022 8:25 AM EST Note Date & Type Note Facility 04-17-2022 History of Presen t illness Narrative Customer Service Teller offered: Patient declinesLa Kiran is a 17 year old No [...] OB History No obstetric history on file. Traffic Incident Management Manager History LMP: 04/06/2022 (Exact Date), Having periods Age at Menarche: Age at First : Age at Menopause: Traffic Incident Management Manager History Comments: Sexual Activity: Yes; Male Contraception: [...] Loren Ramirez APRN.CNP documented in this encounter [facility] Evaluation note Note Date & Type Note Facility documented in this encounter [facility] Evaluation note Note Date & Type Note Facility documented in this encounter [facility] Reason for Referral Specialty Diagnoses / Procedures Referred By Alyssa damian Referred To Contact Diagnoses Family history of malignant neoplasm of breast Procedures CONSULT TO [facility] CANCER GENETIC COUNSELING MEDICAL GENETICS COUNSELING EACH 30 MINUTES Loren Ramirez APRN.CNP [address] [place] [address] [facility] [place] [address] Referral ID Status Reason Start Date Expiration Date Visits Requested Visits Authorized [id number] Pending Review PCP Requested Referral Auto-Generate d [...] or prosecute any alcohol or drug abuse patient.[facility] the event this information is protected by the Federal Confidentiality of Alcohol and Drug Abuse Patient Records regulations: The Federal rules restrict any use of the information to criminally investigate or prosecute any alcohol or drug abuse patient.[facility] the event this information is protected by [...] or prosecute any alcohol or drug abuse patient.[facility] Reason for Visit (unrecogniz ed section and [...] BE BASED ON THE PRIMARY CLINICAL RECORDS. [employer] provides no warranty or guarantee of the accuracy or completeness of information in this document.
[2023-05-16 15:13] LABS: Hematocrit 40.7 % (37-47); Hemoglobin 13.5 g/dL (12.0-15.0); Mean Corp Hgb Conc 33.2 g/dL (32-36); Mean Corpuscular Hgb 30.1 pg (27.0-32.0); Mean Corpuscular Volume 90.8 fL (81-99); Mean Platelet Vol. 11.1 fl (6.2-12.0); Platelet Count 397 K/mm3 (150-450); RBC Distribution Width CV 11.4 % (11.6-14.6); Red Blood Count 4.48 M/mm3 (4.2-5.4); White Blood Count 7.9 K/mm3 (4.4-11.0)
[2023-05-16 15:36] LABS: ALB/GLOB Ratio 0.8 RATIO (0.9-2.4); AST(SGOT) 22 U/L (15-37); Alanine Aminotransfer ALT/SGPT 26 U/L (13-56); Albumin, Serum 3.3 g/dL (3.2-5.0); Alkaline Phosphatase 99 U/L (45-117); Anion Gap 4 (5-15); BUN 6 mg/dL (7-18); BUN/Creat Ratio 8.6 RATIO (10-20); Calcium,Total 9.6 mg/dL (8.5-10.1); Chloride 108 mmol/L (98-107); EST Glomerular Filtration Rate 114 mL/min (>60); Est Glom Filt Rate - Afr Amer 138 mL/min (>60); Globulin 4.3 g/dL (2.2-4.2); Glucose 94 mg/dL (74-106); Lipase 28 U/L (13-75); Potassium 3.2 mmol/L (3.5-5.1); Protein, Total 7.6 g/dL (6.4-8.2); Sodium Level 140 mmol/L (136-145)
== END | disposition home or self-care (01) ==
PROVIDERS: PCP Internal Medicine; Referring Provider Nurse Practitioner; Visit Provider Nurse Practitioner
DX: R10.13 Epigastric pain (principal); K21.9 Gastro-esophageal reflux disease without esophagitis
CPT/HCPCS: 36415; 80053; 83690; 85027

== ENCOUNTER 2023-07-26 13:37 | Inpatient (IN) | payer OTHER, SELFPAY ==
[2023-07-26] VITALS (7 sets, daily range): BP systolic 104–154; BP diastolic 63–89; PULSE 61–109; RESP 16–18; TEMP 36.3–36.8; O2SAT 98–100; BMI 28.3; BMI 29.3
--- NOTE | 2023-07-26 14:02 | US_ITS ---
STUDY: ABDOMINAL ULTRASOUND - RIGHT UPPER QUADRANT REASON FOR VISIT: Female, 18 years old elevated liver enzymes TECHNIQUE: Ultrasound evaluation of the right upper quadrant was performed with real-time and static sandhu-scale imaging. TECHNICAL QUALITY: Adequate. COMPARISON: None. FINDINGS: Liver: The liver measures 14.9 cm. There is normal echogenicity of the liver. The bile ducts are within normal limits. There is hepatic color flow. The direction of portal flow is hepatopetal. There is no demonstrated mass lesion. Gallbladder: Normal distended gallbladder. The gallbladder wall measures 2.0 mm. There is a negative sonographic Mcduffie''s sign. There is no pericholecystic fluid. There are multiple echogenic structures within the gallbladder, consistent with multiple gallstones. Common Bile Duct (C.B.D.): The common bile duct measures 3.7 mm. Pancreas: Normal size of the head, body and tail of the pancreas. There is normal echogenicity of the pancreas. There is no demonstrated pancreatic mass or cyst. Right Kidney: Normal size of the right kidney. The right kidney measures 11.6 cm x 4.2 cm x 3.6 cm. Normal renal cortex. The right cortex measures 1.0 cm. There is no demonstrated renal mass or cyst. There is no right hydronephrosis. US/Gallbladder IMPRESSION: Multiple gallstones. Electronically Signed: Tato Tapia MD at 15:35 EDT ,
--- NOTE | 2023-07-26 14:02 | EX.ED.DYSGE1 ---
HPI History of Present Illness Chief Complaint: Abn Labs Informant: patient Onset/Context/Timing Onset: Days Context: Gradual Onset Timing: Intermittent Current Severity: Mild Maximum Severity: Mild Narrative Narrative: Left you 18-year-old female history of gastritis on omeprazole. Send her last several days she has had some mild abdominal discomfort primarily upper yesterday she had some nausea and vomiting. She is also noticed her urine was quite dark warnings the last several days and she had yellowish discoloration to her eyes. Saw her primary care physician's office who ordered lab work her liver enzymes were elevated they sent her into the emergency department. She denies any prior abdominal surgery or history of any gallbladder or liver disease. Prior similar symptoms: No Recent Illness/Hospitalization: No PFSH PFSH Home Medications drospirenone 3 mg-ethinyl estradiol 0.03 mg tablet tab 05/12/23 [History Last Taken 05/11/23] famotidine 10 mg tablet 10 mg PO BID PRN GERD #30 tabs 06/20/23 [Rx Last Taken Unknown] pantoprazole 40 mg tablet,delayed release 40 mg PO DAILY #30 tabs 07/26/23 [Rx Last Taken Unknown] Allergy/AdvReac Type Severity Reaction Status Date / Time No Known Allergies Allergy Verified 07/26/23 13:39 Family History Mother Breast cancer Myocardial infarction Grandmother Breast cancer Surgical History No pertinent past surgical history Social History adopted: No household members: family 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 Nausea and vomiting. Haines urine. Review of Systems ROS Unobtainable: Denies due to encephalopathy Constitutional Constitutional ED: Denies chills or fever(s) Eyes Eyes: Denies blurry vision ENT ENT ED: Denies ear pain Cardiovascular Cardiovascular: Denies chest pain Respiratory/Chest Respiratory/Chest: Denies cough, dyspnea or dyspnea on exertion Gastrointestinal Gastrointestinal: Reports abdominal pain, nausea and vomiting; Denies constipation, diarrhea or melena Genitourinary Genitourinary ED: Denies dysuria or hematuria Musculoskeletal Musculoskeletal: Denies arthralgias or back pain Neurologic Neurologic: Denies headache(s) or paresthesias Psychiatric Psychiatric: Denies anxiety or depression Endocrine Endocrinology: Denies cold intolerance Hematologic/Lymphatic Hematologic/Lymphatic: Reports none Allergic/Immunologic Allergic/Immunologic ED: Denies mouth swelling, tongue swelling, urticaria or other EXAM Physical Exam Narrative Exam Narrative: Well-appearing 18-year-old female. Vital signs stable afebrile. HEENT exam minimal yellowish discoloration of the white of her eyes. Moist mucous membranes. Neck nontender. Lungs clear. Heart regular rhythm rate about 100 no murmur. Abdomen soft, nontender, nondistended, normal bowel sounds without peritoneal signs. There is no right upper quadrant tenderness or Mcduffie sign. Moving all 4 extremities. Nontender no edema. No jaundice of her skin. Neurologically she is awake and alert no focal motor deficits. Const Vital Signs: 07/26/23 13:38 Temperature 97.4 F L Temperature Source Temporal Pulse Rate 109 H Respiratory Rate 16 Blood Pressure 154/89 H Blood Pressure Mean 110 Pulse Ox 98 Oxygen Delivery Method Room Air Positive well nourished and well developed; Negative for cachectic, contractures or unkempt General Appearance ED: well developed and NAD; Negative for unkempt, cachectic, contractures, cyanotic, diaphoretic or pallor Nutritional Appearance: Negative for cachectic HEENT Reports moist mucous membranes; Denies dry mucous membranes Negative for trauma or tenderness Mouth ED: No dry mucous membranes Mouth: No dry mucous membranes Eyes PERRL and EOMs intact bilaterally Eyes Narrative: Mild yellowish discoloration of her eyes. General Eye ED: Yes scleral icterus; Negative for pale conjunctiva or other Neck no lymphadenopathy, supple and no JVD General: Negative for tenderness Lymph Lymphatic: Negative for other Chest Wall inspection of chest normal and palpation of chest normal Chest: Negative for other Resp normal respiratory effort and clear to auscultation bilaterally Effort and Inspection: Negative for retractions Auscultation: Negative for rales, rhonchi, wheezes or diminished lung sounds Cardio regular rate, regular rhythm, S1 normal heart sound, S2 normal heart sound and no murmurs Palpation: Negative for palpable S3 or palpable S4 Rate: Negative for bradycardia, tachycardic or other Rhythm: Negative for abnormal rhythm GI normal to inspection, nondistended, normoactive bowel sounds, non-tender, non-distended and no masses Inspection: Negative for abdominal distention Auscultation: normoactive bowel sounds Palpation: soft; Negative for tender, guarding or rebound tenderness present Back/Spine no CVA tenderness General Back: Negative for CVA tenderness Cervical Spine: Negative for cervical spine tenderness Thoracic Spine / Upper Back: Negative for thoracic spinal tenderness or paraspinal muscle tenderness Lumbar Spine / Lower Back: Negative for lumbar spinal tenderness Extremity normal to inspection General Extremety ED: Negative for edema or tenderness General Extremity: Negative for edema Neuro oriented x3 and CN's II-XII intact bilaterally Sensorium / Orientation: alert; Negative for orientation impaired or lethargic Motor Exam: strength 5/5 throughout; Negative for general weakness or strength abnormal Psych mental status grossly normal Appearance: Negative for unkempt Attitude: No agitated Mood & Affect: Negative for depressed, anxious or tearful Skin no rashes or lesions noted and no wounds General Skin Exam: Negative for jaundice or pallor Lesions: No lesion noted Rashes: No rashes noted Trauma: Negative for abrasion Wounds: Negative for wounds noted MDM MDM MDM Narrative Medical decision making narrative: 18-year-old female has elevated liver enzymes and scleral icterus. Really has a benign abdominal exam. Obtain a ultrasound of her abdomen. See if there is any type of biliary obstruction. Ultrasound shows multiple gallstones. I spoke to general surgery more likely this is choledocholithiasis. They would like the hospitalist to admit and consult GI. Patient and father are comfortable with the plan. On repeat exam her abdomen is benign. She is resting comfortably. History & Record Review Discussion w/independent historian: Patient and Family Additional record(s) reviewed:: Prior inpatient record, Prior outpatient record and Prior ED visit Lab Data Attestation: I reviewed the patient's lab results. Lab results narrative: Outpatient labs done today. CBC normal. White count of 5. H&H 14 and 42. Platelets 447. Electrolytes unremarkable. Gap 5. Normal BUN and creatinine. Liver enzymes elevated with a total bilirubin of 4.7. Direct bilirubin at 3.9. AST 116, ALT 117 and alk phos 257. Gallbladder ultrasound shows multiple gallstones. Radiography Diagnostic Testing: Clinical Impression(s) from Imaging Studies Gallbladder Ultrasound 07/26/23 14:02 IMPRESSION: Multiple gallstones. Electronically Signed: Tato Tapia MD at 15:35 EDT , Discharge Plan Triage Chief Complaint: Abn Labs ED Provider: Myles Burrows Dx/Rx/DC Orders Clinical Impression: Gallstone, Choledocholithiasis, Elevated liver enzymes Prescriptions: No Action pantoprazole 40 mg tablet,delayed release (DR/EC) 40 mg PO DAILY Qty: 30 0RF famotidine 10 mg tablet 10 mg PO BID PRN (Reason: GERD) Qty: 30 0RF drospirenone-ethinyl estradiol 3-0.03 mg tablet Primary Care Provider: Lisbet Martinez Referrals: Lisbet Martinez MD [Primary Care Provider] - Disposition Disposition: Acute Care Hospital [facility]
--- NOTE | 2023-07-26 16:04 | HP.PCM.HOS_ITS ---
HPI - General HPI Narrative HOWARD LOCO, is a 18 F who presents PFS Home Medications drospirenone 3 mg-ethinyl estradiol 0.03 mg tablet tab 05/12/23 [History Last Taken 05/11/23] famotidine 10 mg tablet 10 mg PO BID PRN GERD #30 tabs 06/20/23 [Rx Last Taken Unknown] pantoprazole 40 mg tablet,delayed release 40 mg PO DAILY #30 tabs 07/26/23 [Rx Last Taken Unknown] Allergy/AdvReac Type Severity Reaction Status Date / Time No Known Allergies Allergy Verified 07/26/23 13:39 Family History Mother Breast cancer Myocardial infarction Grandmother Breast cancer Surgical History No pertinent past surgical history Social History adopted: No household members: family 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 Smoking Status: Never smoker Electronic Cigarette Use: not used alcohol intake: never substance use type: does not use caffeine: Yes (2) Type: carbonated beverages and tea frequency: 1-2 times per week seatbelt use: always do you feel safe at home: Yes Vital Signs Vital Signs Vital Signs: 07/26/23 13:38 Temperature 97.4 F L Temperature Source Temporal Pulse Rate 109 H Respiratory Rate 16 Blood Pressure 154/89 H Blood Pressure Mean 110 Pulse Ox 98 Oxygen Delivery Method Room Air Weight Weight: 165 lb 1 oz Body Mass Index (BMI) 28.3 Results Imaging Radiology Impression Gallbladder Ultrasound 07/26/23 14:02 IMPRESSION: Multiple gallstones. Electronically Signed: Tato Tapia MD at 15:35 EDT , Assessment & Plan Assessment/Plan PLAN: Plan Clinical Impression(s) from Imaging Studies Gallbladder Ultrasound 07/26/23 14:02
--- NOTE | 2023-07-26 16:04 | PCM.HP.STD ---
HPI - General General Date of Admission: 07/26/23 Date of Service: 07/26/23 HPI Narrative HOWARD LOCO, is a 18 F has epigastric/right upper quadrant abdominal discomfort with nausea and vomiting for several days. She found her urine dark yellow and sclera icterus therefore went to PCP who did lab work and found obstructive jaundice and sent to ED. in ED gallbladder ultrasound shows multiple gallstones. Patient further admitted for ERCP and evaluation for lap matilda Patient states she gets mild right upper quadrant abdominal discomfort after eating fatty food along with nausea and vomiting. Pain is localized, mild 3-4/10 intensity intermittent. PFSH Home Medications drospirenone 3 mg-ethinyl estradiol 0.03 mg tablet 1 tab PO DAILY control 05/12/23 [History Last Taken 05/11/23] famotidine 10 mg tablet 10 mg PO BID PRN GERD #30 tabs 06/20/23 [Rx Last Taken Unknown] omeprazole 40 mg capsule,delayed release 40 mg PO DAILY gerd 07/26/23 [History Last Taken Unknown] Allergy/AdvReac Type Severity Reaction Status Date / Time No Known Allergies Allergy Verified 07/26/23 13:39 Family History Mother Breast cancer Myocardial infarction Grandmother Breast cancer Surgical History No pertinent past surgical history Social History adopted: No household members: family 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 No fever. HEENT: Reports systems reviewed and no addt'l complaints, except as documented Respiratory/Chest: No acute shortness of breath or respiratory distress or wheezing. CVS: No chest pain pressure or tightness Gastrointestinal: As described in HPI. Denies coffee ground emesis, hematemesis or alteration of bowel habit normal menstrual cycle. Genitourinary: Normal menstrual cycle. Denies . Denies burning urination or new urinary tract symptoms Musculoskeletal: Denies acute joint pain or limited range of motion. No acute injury Neurologic: Denies seizure-like symptoms. skin: No ulcer. No rash Endocrinology: Reports systems reviewed and no addt'l complaints, except as documented Hematologic/Lymphatic: Reports systems reviewed and no addt'l complaints, except as documented Rest 14 ROS are negative except as mentioned in HPI Vital Signs Vital Signs Vital Signs: 07/26/23 13:38 Temperature 97.4 F L Temperature Source Temporal Pulse Rate 109 H Respiratory Rate 16 Blood Pressure 154/89 H Blood Pressure Mean 110 Pulse Ox 98 Oxygen Delivery Method Room Air Weight Weight: 165 lb 1 oz Body Mass Index (BMI) 28.3 Physical Exam Narrative General: Alert, Oriented x3, Cooperative HEENT: Atraumatic, PERRLA, EOMI, Normocephalic Oral: Oral mucosa dry. no Gingival or Mucosal Lesions/ Ulcerations Neck: Supple, No JVD, Negative Carotid Bruits Chest wall/Lungs: Air entry diminished in bilateral lung bases. No crepitation/rhonchi Cardiovascular: Regular rate, Regular Rhythm, Normal S1, Normal S2, No M/G/R Abdomen: Bowel Sounds Present, Soft, mild tenderness in right upper quadrant and epigastric region. Liver not enlarged. Spleen not palpable. : No dysuria. No renal angle tenderness. No suprapubic tenderness. Extremities: No edema, Capillary Refill Less than 3 Seconds Skin: No rashes, No breakdown Musculoskeletal: No Tenderness to Palpation of Joints or Extremities Neurological: Cranial nerves II-XII grossly intact, DTR 2+/4. No acute focal neurological deficit. Psych/Mental Status: Normal Affect, Appropriate. Results Imaging Radiology Impression Gallbladder Ultrasound 07/26/23 14:02 IMPRESSION: Multiple gallstones. Electronically Signed: Tato Tapia MD at 15:35 EDT , Assessment & Plan Assessment/Plan (1) Choledocholithiasis: (2) Gallstone: PLAN: Plan This is a 18-year-old female with no medical disease being admitted for obstructive jaundice 1. Obstructive jaundice most likely due to choledocholithiasis and cholelithiasis and acute cholestatic: Patient is being admitted on [facility] floor. Patient has RUQ discomfort/pain and right upper quadrant tenderness therefore I think she has acute cholecystitis. IV fluid normal saline. GI consulted for ERCP tomorrow morning with n.p.o. past midnight. General surgery consulted. Gallbladder ultrasound shows multiple gallstones, GB wall 2 mm, no pericholecystic fluid multiple echogenic structures consistent with gallstones. CBD 3.7 mm. Normal pancreas. No pancreatic mass. Liver 14.9 cm. Labs does not show leukocytosis. Liver chemistry total bilirubin 4.7, direct 3.97, ALT AST elevated, alkaline phosphatase 257. Lipase normal. 2. Normal menstrual cycle. Serum test ordered. Discontinue if platelet count drops less than 50,000 or hemoglobin less than 8 g%: Low risk no prophylaxis indicated. Child Protective Services Specialist encouraged. Laboratory Results 07/26/23 10:55: Lipase 43 Clinical Impression(s) from Imaging Studies Gallbladder Ultrasound 07/26/23 14:02 IMPRESSION: Multiple gallstones. Electronically Signed: Tato Tapia MD at 15:35 EDT , Charges/Coding Visit Charges Inpatient E&M: 13362 Init Hosp L3
--- NOTE | 2023-07-26 16:27 | EX.PCM.CON.S ---
Assessment & Plan Assessment/Plan (1) Elevated liver enzymes: (2) Gallstone: PLAN: Plan The patient had ultrasound that showed cholelithiasis. Her liver enzymes are all elevated. Her white count is normal. There is normal thickness of the gallbladder wall. She likely has choledocholithiasis. Recommend GI consult. I will be available for laparoscopic cholecystectomy if she is still here next week but she would not warrant emergent surgery over the weekend. If a stent is placed during ERCP and she can be discharged home she can follow-up with me for elective cholecystectomy and then have stent removal after cholecystectomy. I discussed this with her and she is agreeable. Marvin Kennedy MD Pager: [facility] [address] [place] [address], [address] [place] [address] Office: HPI Consult Data Date of Consult: 07/26/23 HPI Narrative HPI Narrative: HOWARD LOCO, is a 18 F who presents with abdominal pain. The patient reports that she woke up 2 days ago with some nausea. She said she started having orange urine. She then started having more pain and then started noticing scleral icterus. [facility] Home Medications drospirenone 3 mg-ethinyl estradiol 0.03 mg tablet 1 tab PO DAILY control 05/12/23 [History Last Taken 05/11/23] famotidine 10 mg tablet 10 mg PO BID PRN GERD #30 tabs 06/20/23 [Rx Last Taken Unknown] omeprazole 40 mg capsule,delayed release 40 mg PO DAILY gerd 07/26/23 [History Last Taken Unknown] Allergy/AdvReac Type Severity Reaction Status Date / Time No Known Allergies Allergy Verified 07/26/23 13:39 Family History Mother Breast cancer Myocardial infarction Grandmother Breast cancer Surgical History No pertinent past surgical history Social History adopted: No household members: family 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 Smoking Status: Never smoker Electronic Cigarette Use: not used alcohol intake: never substance use type: does not use caffeine: Yes (2) Type: carbonated beverages and tea frequency: 1-2 times per week seatbelt use: always do you feel safe at home: Yes ROS Eyes Eyes: Denies blurry vision ENT HEENT: Denies abnormal hearing Cardiovascular Cardiovascular: Denies chest pain Respiratory/Chest Respiratory/Chest: Denies dyspnea Gastrointestinal Gastrointestinal: Reports abdominal pain and nausea Genitourinary Genitourinary: Denies change in urinary stream Musculoskeletal Musculoskeletal: Denies abnormal gait Integumentary Integumentary: Denies jaundice Neurologic Neurologic: Denies abnormal gait Psychiatric Psychiatric: Denies anxiety Endocrine Endocrinology: Denies flushing Hematologic/Lymphatic Hematologic/Lymphatic: Denies easy bleeding Physical Exam Const alert and oriented x3 HEENT normocephalic Eyes PERRL Resp normal respiratory effort Cardio Rate: regular rate Rhythm: regular rhythm GI soft to palpation and non-tender Imaging Radiology Impression Gallbladder Ultrasound 07/26/23 14:02 IMPRESSION: Multiple gallstones. Electronically Signed: Tato Tapia MD at 15:35 EDT ,
[2023-07-26 17:00] LABS: Lipase 43 U/L (13-75)
--- NOTE | 2023-07-26 17:35 | EX.PCM.CON.G ---
HPI Consult Data Date of Consult: 07/26/23 HPI Narrative Reason for Consultation: abdominal pain and choledocholithiasis HPI Narrative: HOWARD LOCO, is a 18-year-old female history of gastritis on omeprazole. Send her last several days she has had some mild abdominal discomfort primarily upper yesterday she had some nausea and vomiting. She is also noticed her urine was quite dark warnings the last several days and she had yellowish discoloration to her eyes. Saw her primary care physician's office who ordered lab work her liver enzymes were elevated they sent her into the emergency department. She denies any prior abdominal surgery or history of any gallbladder or liver disease. LFTs were drawn in the ED her bilirubin was 4.7 with alkaline phosphatase of 257 , AST 116 , ALT 117. Liver: The liver measures 14.9 cm. There is normal echogenicity of the liver. The bile ducts are within normal limits. There is hepatic color flow. The direction of portal flow is hepatopetal. There is no demonstrated mass lesion. Gallbladder: Normal distended gallbladder. The gallbladder wall measures 2.0 mm. There is a negative sonographic Mcduffie''s sign. There is no pericholecystic fluid. There are multiple echogenic structures within the gallbladder, consistent with multiple gallstones. Common Bile Duct (C.B.D.): The common bile duct measures 3.7 mm. Pancreas: Normal size of the head, body and tail of the pancreas. There is normal echogenicity of the pancreas. There is no demonstrated pancreatic mass or cyst. Right Kidney: Normal size of the right kidney. The right kidney measures 11.6 cm x 4.2 cm x 3.6 cm. Normal renal cortex. The right cortex measures 1.0 cm. There is no demonstrated renal mass or cyst. There is no right hydronephrosis. US/Gallbladder IMPRESSION: Multiple gallstones. PFSH Home Medications drospirenone 3 mg-ethinyl estradiol 0.03 mg tablet 1 tab PO DAILY control 05/12/23 [History Last Taken 05/11/23] famotidine 10 mg tablet 10 mg PO BID PRN GERD #30 tabs 06/20/23 [Rx Last Taken Unknown] omeprazole 40 mg capsule,delayed release 40 mg PO DAILY gerd 07/26/23 [History Last Taken Unknown] Allergy/AdvReac Type Severity Reaction Status Date / Time No Known Allergies Allergy Verified 07/26/23 13:39 Family History Mother Breast cancer Myocardial infarction Grandmother Breast cancer Surgical History No pertinent past surgical history Social History adopted: No household members: family 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 Smoking Status: Never smoker Electronic Cigarette Use: not used alcohol intake: never substance use type: does not use caffeine: Yes (2) Type: carbonated beverages and tea frequency: 1-2 times per week seatbelt use: always do you feel safe at home: Yes ROS Eyes Eyes: Denies blurry vision ENT HEENT: Denies abnormal hearing Cardiovascular Cardiovascular: Denies chest pain Respiratory/Chest Respiratory/Chest: Denies dyspnea Gastrointestinal Gastrointestinal: Reports abdominal pain and nausea Genitourinary Genitourinary: Denies change in urinary stream Musculoskeletal Musculoskeletal: Denies abnormal gait Integumentary Integumentary: Denies jaundice Neurologic Neurologic: Denies abnormal gait Psychiatric Psychiatric: Denies anxiety Endocrine Endocrinology: Denies flushing Hematologic/Lymphatic Hematologic/Lymphatic: Denies easy bleeding Physical Exam Const alert and oriented x3 HEENT normocephalic Eyes PERRL Resp normal respiratory effort Cardio Rate: regular rate Rhythm: regular rhythm GI soft to palpation and non-tender Lab / Micro Data Attestation: I reviewed the patient's lab results. Labs: Laboratory Results - last 24 hr 07/26/23 10:55: Lipase 43 Imaging Radiology Impression Gallbladder Ultrasound 07/26/23 14:02 IMPRESSION: Multiple gallstones. Electronically Signed: Tato Tapia MD at 15:35 EDT , Assessment & Plan Assessment/Plan (1) Elevated liver enzymes: (2) Choledocholithiasis: PLAN: Plan 18yo with cholestatic jaundice secondary to choledocholithiasis. Plan is to perform ERCP tomorrow with stone removal and stent placement. She would likely need cholecystectomy. Explained risk and benefits to patient and patient's father was at bedside. N.p.o. past midnight. Charges/Coding Visit Charges Inpatient E&M: 21194 Init Hosp L2
[2023-07-26 18:23] LABS: Internal QC Validated? YES +Cl - CLEAR BKGD; Pregnancy, Serum, hCG Quali. NEGATIVE Negative
[2023-07-26] MEDS: Lactated Ringers 1,000 ML 100 ML IV (18:37)
[2023-07-26] MEDS: Potassium Chloride Oral Tablet 20 MEQ 40 MEQ PO (18:40)
[2023-07-27] VITALS (13 sets, daily range): BP systolic 103–129; BP diastolic 52–79; PULSE 60–111; RESP 16–18; TEMP 36.3–36.9; O2SAT 99–100; BMI 29.3
[2023-07-27] MEDS: Lactated Ringers 1,000 ML 100 ML IV (05:07)
[2023-07-27 05:28] LABS: Absolute Lymphocyte Count 2.45 X10^3/uL (0.83-4.51); Absolute Neutrophil Count 2.5 X10^3/uL (2.0-7.7); Basophil# 0.05 X10^3/uL; Basophil% 0.9 % (0-1); Eosinophil# 0.21 X10^3/uL; Eosinophils% 3.6 % (0-5); Hematocrit 37.4 % (37-47); Hemoglobin 12.2 g/dL (12.0-15.0); Lymphocyte # 2.45 X10^3/ul (0.83-4.51); Mean Corp Hgb Conc 32.6 g/dL (32-36); Mean Corpuscular Hgb 30.2 pg (27.0-32.0); Mean Corpuscular Volume 92.6 fL (81-99); Mean Platelet Vol. 10.5 fl (6.2-12.0); Monocyte# 0.61 X10^3/uL; Monocyte% 10.4 % (0-10); NRBC Flagged by Analyzer 0 % (0-5); Neutrophil % 42.8 % (47-70); Platelet Count 365 K/mm3 (150-450); RBC Distribution Width CV 12.5 % (11.6-14.6); RBC Distribution Width SD 42.5 fl (35.1-43.9); Red Blood Count 4.04 M/mm3 (4.2-5.4); White Blood Count 5.8 K/mm3 (4.4-11.0)
--- NOTE | 2023-07-27 05:55 | EKG12_ITS ---
Test Reason : PRE-OP Blood Pressure : / mmHG Vent. Rate : 064 BPM Atrial Rate : 064 BPM P-R Int : 166 ms QRS Dur : 094 ms QT Int : 466 ms P-R-T Axes : 041 048 024 degrees QTc Int : 480 ms Normal sinus rhythm with sinus arrhythmia Prolonged QT Abnormal ECG No previous ECGs available Confirmed by LAURA HARRIS, YASMIN ([id number]), food expeditor DALJIT CRUZ ([id number]) on 07/30/2023 7:44:32 AM Referred By: SAHISTA Confirmed By:YASMIN SANCHEZ MD
[2023-07-27 06:16] LABS: AST(SGOT) 243 U/L (15-37); Alanine Aminotransfer ALT/SGPT 215 U/L (13-56); Albumin, Serum 2.7 g/dL (3.2-5.0); Alkaline Phosphatase 229 U/L (45-117); Anion Gap 6 (5-15); BUN 6 mg/dL (7-18); BUN/Creat Ratio 11.2 RATIO (10-20); Bilirubin, Direct 2.67 mg/dL (0.00-0.30); Calcium,Total 8.9 mg/dL (8.5-10.1); Chloride 109 mmol/L (98-107); Creatinine, Serum 0.54 mg/dL (0.55-1.02); EST Glomerular Filtration Rate 154 mL/min (>60); Est Glom Filt Rate - Afr Amer 187 mL/min (>60); Globulin 3.7 g/dL (2.2-4.2); Glucose 81 mg/dL (74-106); Phosphorus 3.2 mg/dL (2.5-4.9); Potassium 3.6 mmol/L (3.5-5.1); Protein, Total 6.4 g/dL (6.4-8.2); Sodium Level 139 mmol/L (136-145)
--- NOTE | 2023-07-27 07:17 | PN.HOSP_ITS ---
Reason for Visit Reason for Visit: Diagnoses Calculus of gallbladder without cholecystitis without obstruction (07/26/23) Calculus of bile duct without cholangitis or cholecystitis without obstruction (07/26/23) Abnormal levels of other serum enzymes (07/26/23) Subjective Subjective Patient is a 18-year-old lady admitted with abdominal pain. Found to be jaundiced. Admitted to regular nursing floor for further management Objective Data Objective Data Vital Signs: Vital Signs Temp Pulse Resp BP Pulse Ox O2 Del Method 98.3 F 61 16 103/52 L 100 Room Air 07/27/23 02:20 07/27/23 02:20 07/27/23 02:20 07/27/23 02:20 07/27/23 02:20 07/27/23 02:20 Oxygen Delivery Method Room Air Weight: 75.206 kg Body Mass Index (BMI) 29.3 Intake & Output: Intake and Output for Last 24 Hours 07/25/23 07/26/23 07/27/23 23:59 23:59 23:59 Intake Total 1000 / 1000 Balance 1000 / 1000 Lab / Micro Data 07/27/23 05:05 07/27/23 05:05 Labs: Laboratory Results - last 24 hr 07/26/23 10:55: Magnesium 2.0, Lipase 43, Serum , Qual NEGATIVE 07/27/23 05:05: WBC 5.8, RBC 4.04 L, Hgb 12.2, Hct 37.4, MCV 92.6, MCH 30.2, MCHC 32.6, RDW Std Deviation 42.5, RDW Coeff of Arffi 12.5, Plt Count 365, MPV 10.5, Immature Gran % (Auto) 0.300, Neut % (Auto) 42.8 L, Lymph % (Auto) 42.0 H, [place] % (Auto) 10.4 H, Eos % (Auto) 3.6, Baso % (Auto) 0.9, Absolute Neuts (auto) 2.5, Absolute Lymphs (auto) 2.45, Nucleated RBC % 0, Sodium 139, Potassium 3.6, Chloride 109 H, Carbon Dioxide 24.0, Anion Gap 6, BUN 6 L, Creatinine 0.54 L, Estim Creat Clear Calc 161.40, Est GFR (MDRD) Af Amer 187, Est GFR (MDRD) Non-Af 154, BUN/Creatinine Ratio 11.2, Glucose 81, Calcium 8.9, Phosphorus 3.2, Total Bilirubin 3.20 H, Direct Bilirubin 2.67 H, AST 243 H, ALT 215 H, Alkaline Phosphatase 229 H, Total Protein 6.4, Albumin 2.7 L, Globulin 3.7 Radiography Diagnostic Testing: Radiology Impression Gallbladder Ultrasound 07/26/23 14:02 IMPRESSION: Multiple gallstones. Electronically Signed: Tato Tapia MD at 15:35 EDT , Physical Exam Narrative GENERAL: cooperative HEENT: Atraumatic; normocephalic EYES; icteric, Normal Conjunctiva NECK; supple, normal thyroid, RESPIRATORY: Diminished to auscultation CARDIOVASCULAR: Regular S1 S2, GI: soft, normoactive bowel sounds, : No Renal angle tenderness; EXTREMITIES: No edema, no clubbing, MUSCULOSKELETAL: no muscle wasting NEURO: Awake; no lateralizing signs. SKIN: No Rash PSYCH; Flat affect Assessment & Plan Assessment/Plan (1) Choledocholithiasis: (2) Gallstone: PLAN: Plan Patient is a 18-year-old lady admitted with abdominal pain. Found to be jaundiced. Admitted to regular nursing floor for further management 1. Obstructive jaundice ? Secondary to choledocholithiasis and cholelithiasis. Patient admitted to regular nursing floor management with pain meds antinausea medication initiated. Consult placed to both GI and general surgery. Patient has been scheduled to undergo ERCP and stone removal with stent placement. Decision regarding possible cholecystectomy deferred to general surgery 2. Overweight with BMI of 39.4 ? Weight reduction encouraged 3. Hypokalemia ? Corrected per protocol subsequent monitoring of electrolytes ordered 4. DVT prophylaxis ? Low risk, with encouraging ambulation Time spent in the patient's overall evaluation,decision-making process, review of diagnostic data, adjustment of management, discussion with other providers, nursing nursing and ancillary staff involved in patient's care documentation,38 Minutes Charges/Coding Visit Charges Inpatient E&M: 05842 Subs Hosp L2
--- NOTE | 2023-07-27 07:31 | RAD_ITS ---
STUDY: ERCP. REASON FOR EXAM: Female, 18 years old. ERCP FLUOROSCOPY TIME (if supplied): ( 50 seconds ) minutes/seconds. 47.23 mGy. 17 spot images were obtained. TECHNIQUE: ERCP was performed by the [facility]. Imaging was submitted. COMPARISON: None. FINDINGS: Dilated pancreatic duct. Biliary stent was placed. RAD/ERCP Biliary/Pancreas IMPRESSION: Biliary stent placed. Electronically Signed: Tato Tapia MD at 14:20 EDT ,
--- NOTE | 2023-07-27 08:47 | PCM.PN.SRG ---
Subjective Subjective Patient reports feeling about the same as yesterday. Objective Data Objective Data Vital Signs: Vital Signs Temp Pulse Resp BP Pulse Ox O2 Del Method 98.4 F 65 18 120/64 100 Room Air 07/27/23 08:15 07/27/23 08:15 07/27/23 08:15 07/27/23 08:15 07/27/23 08:15 07/27/23 08:15 Oxygen Delivery Method Room Air Weight: 165 lb 12.8 oz Body Mass Index (BMI) 29.3 Intake & Output: Intake and Output for Last 24 Hours 07/25/23 07/26/23 07/27/23 23:59 23:59 23:59 Intake Total 1000 / 1000 Balance 1000 / 1000 Lab / Micro Data 07/27/23 05:05 07/27/23 05:05 Labs: Laboratory Results - last 24 hr 07/26/23 10:55: Magnesium 2.0, Lipase 43, Serum , Qual NEGATIVE 07/27/23 05:05: WBC 5.8, RBC 4.04 L, Hgb 12.2, Hct 37.4, MCV 92.6, MCH 30.2, MCHC 32.6, RDW Std Deviation 42.5, RDW Coeff of Raffi 12.5, Plt Count 365, MPV 10.5, Immature Gran % (Auto) 0.300, Neut % (Auto) 42.8 L, Lymph % (Auto) 42.0 H, [place] % (Auto) 10.4 H, Eos % (Auto) 3.6, Baso % (Auto) 0.9, Absolute Neuts (auto) 2.5, Absolute Lymphs (auto) 2.45, Nucleated RBC % 0, Sodium 139, Potassium 3.6, Chloride 109 H, Carbon Dioxide 24.0, Anion Gap 6, BUN 6 L, Creatinine 0.54 L, Estim Creat Clear Calc 161.40, Est GFR (MDRD) Af Amer 187, Est GFR (MDRD) Non-Af 154, BUN/Creatinine Ratio 11.2, Glucose 81, Calcium 8.9, Phosphorus 3.2, Total Bilirubin 3.20 H, Direct Bilirubin 2.67 H, AST 243 H, ALT 215 H, Alkaline Phosphatase 229 H, Total Protein 6.4, Albumin 2.7 L, Globulin 3.7 Radiography Diagnostic Testing: Radiology Impression Gallbladder Ultrasound 07/26/23 14:02 IMPRESSION: Multiple gallstones. Electronically Signed: Tato Tapia MD at 15:35 EDT , Physical Exam Const no apparent distress Resp normal respiratory effort GI soft to palpation Palpation: tender epigastric Assessment & Plan Assessment/Plan (1) Choledocholithiasis: (2) Elevated liver enzymes: PLAN: Plan Patient has obstructive jaundice due to choledocholithiasis. She is being scheduled for ERCP today. As long as stone was removed and stent is placed I will have her come back next week for elective cholecystectomy. Marvin Kennedy MD Pager: [facility] [address] [place] [address], [address] [place] [address] Office:
--- NOTE | 2023-07-27 09:58 | CASEMGMT ---
FRANK FORTE Assessment: Face to Face with pt for initial transition planning/care coordination assessment. RN REANNA introduced self and role at [facility], pt voices understanding and consents to assessment. Pt is A&O x4 and answers all questions appropriately at this time. Pt lying in bed in no distress with father at bedside. Pt agreeable to assessment with father present. Care providers, pharmacy, and demographics verified/updated. Admitting Dx: Cholelithiasis with choledocholithiasis PCP:Michelle Specialists:Pablo, CONTINUITY CLERK Preferred [facility]acy: [facility] Insurance: Balloon Prescription Benefit: yes LNOK: Kaci Crowder, father Living Arrangements: Pt lives with father in a two story home with 3 steps to enter. Pt reports she is I in ADL's and denies concerns at home. Transportation: Pt drives self and denies concerns with transportation. DME:Denies HHC/SNF: Denies hx of Pt states no concerns with going home at time of dc. Pt states no further concerns/needs. CM to follow. Advised pt to ask CM if any further question/concerns/needs arise, voices understanding. Pt Goal: Home Plan: Home Aime MARIE CM
[2023-07-27] MEDS: Lactated Ringers 1,000 ML 15 ML IV (10:28)
--- NOTE | 2023-07-27 13:26 | OP.ERCP_ITS ---
Patient Name: Qiana Crowder Procedure Date: 07/27/2023 11:05 AM Date of : 2005 Age: 18 Procedure: ERCP Indications: Bile duct stone(s) Providers: Marko Lopez DO Medicines: Monitored Anesthesia Care, General Anesthesia Patient Profile: This is a 18 year old female. Refer to note in patient chart for documentation of history and physical. Patient has symptoms of acute right upper quadrant abdominal pain. Complications: No immediate complications. Procedure: Pre-Anesthesia Assessment: - Prior to the procedure, a History and Physical was performed, and patient medications and allergies were reviewed. The patient is competent. The risks and benefits of the procedure and the sedation options and risks were discussed with the patient. All questions were answered and informed consent was obtained. Patient identification and proposed procedure were verified by the physician. Mental Status Examination: normal. Prophylactic Antibiotics: The patient does not require prophylactic antibiotics. Prior Anticoagulants: The patient has taken no anticoagulant or antiplatelet agents. ASA Grade Assessment: II - A patient with mild systemic disease. After reviewing the risks and benefits, the patient was deemed in satisfactory condition to undergo the procedure. The anesthesia plan was to use general anesthesia. Immediately prior to administration of medications, the patient was re-assessed for adequacy to receive sedatives. The heart rate, respiratory rate, oxygen saturations, blood pressure, adequacy of pulmonary ventilation, and response to care were monitored throughout the procedure. The physical status of the patient was re-assessed after the procedure. After obtaining informed consent, the scope was passed under direct vision. Throughout the procedure, the patient's blood pressure, pulse, and oxygen saturations were monitored continuously. The Duodenoscope was introduced through the mouth, and advanced to the duodenum and used to inject contrast into the bile duct. The ERCP was accomplished without difficulty. The patient tolerated the procedure well. Scope In: Scope Out: 1:16:38 PM Findings: The biometric fingerprinting technician film was normal. The esophagus was successfully intubated under direct vision. The scope was advanced to a normal major papilla in the descending duodenum without detailed examination of the pharynx, larynx and associated structures, and upper GI tract. The upper GI tract was grossly normal. The bile duct was deeply cannulated with the short-nosed traction sphincterotome. Contrast was injected. I personally interpreted the bile duct images. There was brisk flow of contrast through the ducts. Image quality was excellent. Contrast extended to the entire biliary tree. A straight Roadrunner wire was passed into the biliary tree. A 5 mm biliary sphincterotomy was made with a braided traction (standard) sphincterotome using ERBE electrocautery. There was no post-sphincterotomy bleeding. The biliary tree was swept with a 12 mm balloon starting at the bifurcation. Sludge was swept from the duct. All stones were removed. Dilation of the left main hepatic duct with 5-7-8.5 Fr catheter dilator was successful. One 10 Fr by 5 cm temporary stent was placed 5 cm into the common bile duct. Bile flowed through the stent. The stent was in good position. Impression: - Choledocholithiasis was found. Complete removal was accomplished by biliary sphincterotomy and balloon extraction. - A biliary sphincterotomy was performed. - The biliary tree was swept. - The left main hepatic duct was successfully dilated. - One temporary stent was placed into the common bile duct. Procedure Code(s): --- Professional --- 76737, Endoscopic retrograde cholangiopancreatography (ERCP); with placement of endoscopic stent into biliary or pancreatic duct, including pre- and post-dilation and guide wire passage, when performed, including sphincterotomy, when performed, each stent 39386, Endoscopic retrograde cholangiopancreatography (ERCP); with removal of calculi/debris from biliary/pancreatic duct(s) 51325, 26, Endoscopic catheterization of the biliary ductal system, radiological supervision and interpretation 39804, Unlisted procedure, biliary tract CPT copyright 2021 [employer]. All rights reserved. The codes documented in this report are preliminary and upon brick and tile making machine operator review may be revised to meet current compliance requirements. Marko Lopez DO 07/27/2023 1:26:31 PM This report has been signed electronically. Number of Addenda: 0 Note Initiated On: 07/27/2023 11:05 AM
--- NOTE | 2023-07-27 13:27 | OP.CCLET_ITS ---
07/27/2023 Lisbet Martinez MD [address] [place] [address] [place] [address] Re : ERCP procedure for Qiana Crowder Dear Dr. Martinez This procedure was performed on Thursday, July 27, 2023. My impressions and recommendations are as follows: Impressions : - Choledocholithiasis was found. Complete removal was accomplished by biliary sphincterotomy and balloon extraction. - A biliary sphincterotomy was performed. - The biliary tree was swept. - The left main hepatic duct was successfully dilated. - One temporary stent was placed into the common bile duct. Recommendations : My findings are described in the full procedure note, which is enclosed. If I can be of further assistance, please feel free to contact me at . Sincerely, Marko Lopez, 07/27/2023 1:26:31 PM This report has been signed electronically.
--- NOTE | 2023-07-27 14:50 | PCM.DC.SUM ---
Providers Date of Admission: 07/26/23 Date of Discharge: 07/27/23 Primary Care Physician: Dr. Lisbet Martinez MD Reason For Visit: CHOLELITHIASIS WITH CHOLEDOCHOLITHIASIS Diagnosis Discharge Diagnosis (1) Choledocholithiasis: Status: Acute Code(s): K80.50 - Calculus of bile duct without cholangitis or cholecystitis without obstruction (2) Gallstone: Status: Acute Code(s): K80.20 - Calculus of gallbladder without cholecystitis without obstruction Plan Patient is a 18-year-old lady admitted with abdominal pain. Found to be jaundiced. Admitted to regular nursing floor for further management 1. Obstructive jaundice ? Secondary to choledocholithiasis and cholelithiasis. Patient admitted to regular nursing floor management with pain meds antinausea medication initiated. Consult placed to both GI and general surgery. Patient has been scheduled to undergo ERCP and stone removal with stent placement. Decision regarding possible cholecystectomy deferred to general surgery ? Patient underwent ERCP by Dr. Lopez. Plan is for patient to follow-up with Dr. Kennedy on 08/02/2023 for elective cholecystectomy. 2. Overweight with BMI of 39.4 ? Weight reduction encouraged 3. Hypokalemia ? Corrected per protocol subsequent monitoring of electrolytes ordered 4. DVT prophylaxis ? Low risk, with encouraging ambulation Time spent in the patient's overall evaluation,decision-making process, review of diagnostic data, adjustment of management, discussion with other providers, nursing nursing and ancillary staff involved in patient's care documentation,38 Minutes Medications at Discharge Home Medications drospirenone 3 mg-ethinyl estradiol 0.03 mg tablet 1 tab PO DAILY control 05/12/23 famotidine 10 mg tablet 10 mg PO BID PRN GERD #30 tabs 06/20/23 omeprazole 40 mg capsule,delayed release 40 mg PO DAILY gerd 07/26/23 acetaminophen 325 mg tablet 650 mg (2 x 325 mg) PO Q6H PRN PRN Pain 1-10 Or Fever>100.7 #0 tabs 07/27/23 Physical Exam Narrative GENERAL: cooperative HEENT: Atraumatic; normocephalic EYES; icteric, Normal Conjunctiva NECK; supple, normal thyroid, RESPIRATORY: Diminished to auscultation CARDIOVASCULAR: Regular S1 S2, GI: soft, normoactive bowel sounds, : No Renal angle tenderness; EXTREMITIES: No edema, no clubbing, MUSCULOSKELETAL: no muscle wasting NEURO: Awake; no lateralizing signs. SKIN: No Rash PSYCH; Flat affect Weight / BMI Weight Weight: 75.206 kg Body Mass Index (BMI) 29.3 ABG / Lab / Microbiology Data 07/27/23 05:05 07/27/23 05:05 Laboratory: Laboratory Results - last 24 hr 07/26/23 10:55: Magnesium 2.0, Lipase 43, Serum , Qual NEGATIVE 07/27/23 05:05: WBC 5.8, RBC 4.04 L, Hgb 12.2, Hct 37.4, MCV 92.6, MCH 30.2, MCHC 32.6, RDW Std Deviation 42.5, RDW Coeff of Raffi 12.5, Plt Count 365, MPV 10.5, Immature Gran % (Auto) 0.300, Neut % (Auto) 42.8 L, Lymph % (Auto) 42.0 H, [place] % (Auto) 10.4 H, Eos % (Auto) 3.6, Baso % (Auto) 0.9, Absolute Neuts (auto) 2.5, Absolute Lymphs (auto) 2.45, Nucleated RBC % 0, Sodium 139, Potassium 3.6, Chloride 109 H, Carbon Dioxide 24.0, Anion Gap 6, BUN 6 L, Creatinine 0.54 L, Estim Creat Clear Calc 161.40, Est GFR (MDRD) Af Amer 187, Est GFR (MDRD) Non-Af 154, BUN/Creatinine Ratio 11.2, Glucose 81, Calcium 8.9, Phosphorus 3.2, Total Bilirubin 3.20 H, Direct Bilirubin 2.67 H, AST 243 H, ALT 215 H, Alkaline Phosphatase 229 H, Total Protein 6.4, Albumin 2.7 L, Globulin 3.7 Radiography Diagnostic Testing: Radiology Impression Gallbladder Ultrasound 07/26/23 14:02 IMPRESSION: Multiple gallstones. Electronically Signed: Tato Tapia MD at 15:35 EDT , Endo Retro Cholangiopancreatogram 07/27/23 07:31 IMPRESSION: Biliary stent placed. Electronically Signed: Tato Tapia MD at 14:20 EDT , D/C Instructions Discharge Diet: No restrictions Discharge Activity: Return to Normal Activity Call your doctor if you observe: Fever of 101 or Higher, Shortness of breath, Fainting spells and Chest pain Meaningful Use Info Meaningful Use Meaningful Use Diagnoses (Choose all that apply): None applicable Ischemic Stroke Statin Dosing Therapy Reference: STATIN DOSE THERAPY REFERENCE: * Patients > 75 years receive moderate or high dose statin therapy. * Patients 75 years or YOUNGER should receive HIGH intensity statin dose unless contraindicated. You will be required to document reason for non-treatment if statin daily dose does not meet guidelines. HIGH DOSE STATIN THERAPY DAILY Atorvastatin > than or = to 40 mg Rosuvastatin > than or = to 20 mg Amlodipine + Atorvastatin > than or = to 2.5/40 mg Ezetimibe + Simvastatin 10/80 mg Simvastatin 80mg Discharge Plan Admission Admit Date/Time: 07/26/23 17:54 Attending Provider: Yousif Cutler Primary Care Provider: Lisbet Martinez Consulting Providers: Basilio Barboza Discharge Orders/Prescriptions Prescriptions: New acetaminophen 325 mg Tablet 650 mg PO Q6H PRN PRN (Reason: Pain 1-10 Or Fever>100.7) Qty: 0 0RF Continued famotidine 10 mg tablet 10 mg PO BID PRN (Reason: GERD) Qty: 30 0RF omeprazole 40 mg capsule,delayed release(DR/EC) 40 mg PO DAILY drospirenone-ethinyl estradiol 3-0.03 mg tablet 1 tab PO DAILY Referrals / Follow Up: Marvin Kennedy MD [Med Staff - Active Staff] - 08/02/23 7:00 am (Patient to follow-up for elective cholecystectomy as previously scheduled) Lisbet Martinez MD [Primary Care Provider] - Within 2 Weeks Disposition Disposition (needs filled in before D/C Order can be placed): Home, Self Care Charges/Coding Visit Charges Inpatient E&M: 39743 Disch Hosp >30min
--- NOTE | 2023-07-27 14:52 | PN_ITS ---
Progress Note Patient had ERCP today with stone removal and stent placement. I have her scheduled for next , August 01 for laparoscopic cholecystectomy. She can be discharged home when medically stable and follow-up on for her elective surgery. I discussed the procedure in detail with the patient. I discussed the risks, benefits, and alternatives of the procedure. I discussed the risks including but not limited to bleeding, infection, injury to surrounding organs such as the liver, bile duct, bowels. I did discuss the possibility of having to convert to an open procedure as well as the possibility that if any injuries occurred this may necessitate further surgery at a tertiary care center. Marvin Kennedy MD Pager: [facility] [address] [place] [address] [address] [place] [address] Office:
--- NOTE | 2023-07-27 14:52 | DCINST_ITS ---
Discharge Instructions Diet Discharge Diet: No restrictions Activity Discharge Activity: Return to Normal Activity Dressing / Incision Call your doctor if you observe: Fever of 101 or Higher, Shortness of breath, Fainting spells and Chest pain Follow Up Care Test Results: Test results from this visit will be discussed in further detail at your follow- up appointment, if applicable. Discharge Plan Admission Admit Date/Time: 07/26/23 17:54 Attending Provider: Yousif Cutler Primary Care Provider: Lisbet Martinez Consulting Providers: Basilio Barboza Discharge Orders/Prescriptions Prescriptions: New acetaminophen 325 mg Tablet 650 mg PO Q6H PRN PRN (Reason: Pain 1-10 Or Fever>100.7) Qty: 0 0RF Continued famotidine 10 mg tablet 10 mg PO BID PRN (Reason: GERD) Qty: 30 0RF omeprazole 40 mg capsule,delayed release(DR/EC) 40 mg PO DAILY drospirenone-ethinyl estradiol 3-0.03 mg tablet 1 tab PO DAILY Referrals / Follow Up: Marvin Kennedy MD [Med Staff - Active Staff] - 08/02/23 7:00 am (Patient to follow-up for elective cholecystectomy as previously scheduled) Lisbet Martinez MD [Primary Care Provider] - Within 2 Weeks Disposition Disposition (needs filled in before D/C Order can be placed): Home, Self Care
== END 2023-07-27 17:21 | disposition home or self-care (01) | DRG 446 ==
LOC: ED 15:58 → MS3 18:18
PROVIDERS: Internal Medicine Gastroenterology; Admitting Provider Internal Medicine; Emergency Provider Emergency Medicine; PCP Internal Medicine; Visit Provider Internal Medicine
PROC: 0FC98ZZ Extirpation of Matter from Common Bile Duct, Via Natural or Artificial Opening Endoscopic (ICD-10-PCS; CPT 43260; principal; 2023-07-27 11:10)
DX: K80.71 Calculus of gallbladder and bile duct without cholecystitis with obstruction (principal); E66.3 Overweight; E87.6 Hypokalemia; Z68.28 Body mass index [BMI] 28.0-28.9, adult; Z79.899 Other long term (current) drug therapy
CPT/HCPCS: 36415; 74330; 76000; 76705; 80048; 80076; 83690; 83735; 84100; 84703; 85025; 93005; 99284; J7120; C1726; J2405

== ENCOUNTER → 2023-07-26 | Outpatient (CLI) | payer OTHER, SELFPAY ==
[2023-07-26 12:20] LABS: Absolute Lymphocyte Count 1.83 X10^3/uL (0.83-4.51); Absolute Neutrophil Count 2.9 X10^3/uL (2.0-7.7); Basophil# 0.07 X10^3/uL; Basophil% 1.2 % (0-1); Eosinophil# 0.26 X10^3/uL; Eosinophils% 4.6 % (0-5); Hematocrit 42.9 % (37-47); Lymphocyte # 1.83 X10^3/ul (0.83-4.51); Lymphocyte % 32.1 % (19-41); Mean Corp Hgb Conc 32.6 g/dL (32-36); Mean Corpuscular Volume 91.9 fL (81-99); Mean Platelet Vol. 10.7 fl (6.2-12.0); Monocyte# 0.54 X10^3/uL; Monocyte% 9.5 % (0-10); NRBC Flagged by Analyzer 0 % (0-5); Neutrophil # 2.93 X10^3/uL (2.7-7.7); Neutrophil % 51.4 % (47-70); Platelet Count 447 K/mm3 (150-450); RBC Distribution Width CV 12.4 % (11.6-14.6); RBC Distribution Width SD 41.7 fl (35.1-43.9); Red Blood Count 4.67 M/mm3 (4.2-5.4); White Blood Count 5.7 K/mm3 (4.4-11.0)
[2023-07-26 12:33] LABS: AST(SGOT) 116 U/L (15-37); Alanine Aminotransfer ALT/SGPT 117 U/L (13-56); Albumin, Serum 3.2 g/dL (3.2-5.0); Alkaline Phosphatase 257 U/L (45-117); Anion Gap 5 (5-15); BUN 5 mg/dL (7-18); BUN/Creat Ratio 7.7 RATIO (10-20); Bilirubin, Direct 3.97 mg/dL (0.00-0.30); Chloride 106 mmol/L (98-107); Creatinine, Serum 0.65 mg/dL (0.55-1.02); EST Glomerular Filtration Rate 123 mL/min (>60); Est Glom Filt Rate - Afr Amer 148 mL/min (>60); Globulin 4.6 g/dL (2.2-4.2); Glucose 94 mg/dL (74-106); Potassium 3.5 mmol/L (3.5-5.1); Protein, Total 7.8 g/dL (6.4-8.2); Sodium Level 138 mmol/L (136-145)
[2023-07-26 12:39] LABS: Color, Urine Brown (Yellow); Glucose, Dipstick Normal (Normal); Ketone-Dipstick 5 mg/dl (Negative); Leukocyte Esterase-Dipstick 25 /ul (Negative); Nitrite-Dipstick Positive (Negative); Occult Blood-Urine 50 /ul (Negative); Protein-Dipstick 30 mg/dl (Negative); Specific Gravity, Urine 1.015 (1.002-1.030); Urine Clarity Clear (Clear); Urine Urobilinogen 12 mg/dl (Normal); Urine pH 6.5 (5.0 - 8.0)
[2023-07-26 12:42] LABS: Urine Bilirubin Dipstick 6 mg/dL (Negative)
[2023-07-26 12:56] LABS: Bacteria 1+ /hpf (None Seen); Red Blood Cells-Urine 0-5 SEEN /hpf (0-5); Squamous Epithelial Cells - UA 5-10 SEEN /hpf (5-10); White Blood Cells 10-25 SEEN /hpf (0-5)
[2023-07-26 12:57] LABS: Mucous, Urine 2+ /hpf (<or=2+)
== END | disposition home or self-care (01) ==
LOC: BIMLAB 10:53
PROVIDERS: PCP Internal Medicine; Visit Provider Internal Medicine
DX: R10.13 Epigastric pain (principal); R17 Unspecified jaundice
CPT/HCPCS: 36415; 80048; 80076; 81001; 85025

== ENCOUNTER 2023-08-02 05:52 | Day surgery (SDC) | payer OTHER, SELFPAY ==
[2023-08-02] VITALS (10 sets, daily range): BP systolic 116–144; BP diastolic 69–98; PULSE 79–93; RESP 14–16; TEMP 36.3–36.9; O2SAT 97–99; BMI 29.5
[2023-08-02 06:30] LABS: Internal QC Validated? YES +Cl - CLEAR BKGD; Pregnancy, Urine Negative Negative; Record Kit Lot#,Urine Preg 718089
[2023-08-02] MEDS: Lactated Ringers 1,000 ML 15 ML IV (06:30)
--- NOTE | 2023-08-02 06:50 | PCM.HP.STD ---
HPI - General HPI Narrative HOWARD LOCO, is a 18 F who presents for elective cholecystectomy. The patient was admitted last week and had ERCP with stone removal and stent placement. Patient is doing well in the interim. [facility] Medical History (Updated 07/31/23 @ 15:18 by Talia Amaya) Gastric reflux Non-smoker Wears glasses Home Medications drospirenone 3 mg-ethinyl estradiol 0.03 mg tablet 1 tab PO DAILY control 05/12/23 [History Last Taken 08/01/23] acetaminophen 325 mg tablet 650 mg (2 x 325 mg) PO Q6H PRN PRN Pain 1-10 Or Fever>100.7 #0 tabs 07/27/23 [Rx Last Taken Unknown] pantoprazole 40 mg tablet,delayed release 40 mg PO DAILY 07/31/23 [History Last Taken 08/01/23] Allergy/AdvReac Type Severity Reaction Status Date / Time No Known Allergies Allergy Verified 07/31/23 15:12 Family History Mother Breast cancer Myocardial infarction Grandmother Breast cancer Surgical History (Updated 07/31/23 @ 15:18 by Talia Amaya) History of ERCP Social History adopted: No household members: family 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 Smoking Status: Never smoker Electronic Cigarette Use: not used alcohol intake: never substance use type: does not use caffeine: Yes (2) Type: carbonated beverages and tea frequency: 1-2 times per week seatbelt use: always do you feel safe at home: Yes ROS Constitutional Constitutional: Denies anorexia, chills or fatigue Eyes Eyes: Denies blurry vision ENT HEENT: Denies abnormal hearing Cardiovascular Cardiovascular: Denies chest pain Respiratory/Chest Respiratory/Chest: Denies cough or dyspnea Gastrointestinal Gastrointestinal: Denies abdominal pain, nausea or vomiting Genitourinary Genitourinary: Denies change in urinary stream Musculoskeletal Musculoskeletal: Denies abnormal gait Integumentary Integumentary: Denies new lesions Neurologic Neurologic: Denies dizziness Psychiatric Psychiatric: Denies anxiety Endocrine Endocrinology: Denies heat intolerance Hematologic/Lymphatic Hematologic/Lymphatic: Denies easy bleeding Vital Signs Vital Signs Vital Signs: 08/02/23 06:28 08/02/23 06:31 Temperature 98.1 F Temperature Source Temporal Pulse Rate 79 Respiratory Rate 14 Respiratory Pattern Normal Blood Pressure 116/72 Blood Pressure Mean 86 Blood Pressure Source Monitor Blood Pressure Position Semi-Fowlers Blood Pressure Location Right Arm Pulse Ox 99 Oxygen Delivery Method Room Air Weight Weight: 166 lb 14.239 oz Body Mass Index (BMI) 29.5 Physical Exam Const oriented x3 and no apparent distress Resp normal respiratory effort Cardio regular rate and regular rhythm GI soft to palpation and non-tender Extremity normal to inspection Results Lab / Micro Data Labs: Laboratory Results - last 24 hr 08/02/23 06:15: Urine Test Negative Assessment & Plan Assessment/Plan (1) Choledocholithiasis: PLAN: Patient is here for elective laparoscopic cholecystectomy for choledocholithiasis. She had ERCP with stone removal and stent placement last week. I discussed surgery with her last week while she was in the hospital. I discussed the procedure in detail with the patient. I discussed the risks, benefits, and alternatives of the procedure. I discussed the risks including but not limited to bleeding, infection, injury to surrounding organs such as the liver, bile duct, bowels. I did discuss the possibility of having to convert to an open procedure as well as the possibility that if any injuries occurred this may necessitate further surgery at a tertiary care center. Marvin Kennedy MD Pager: [facility] [address] [place] [address], [address] [place] [address] Office:
[2023-08-02] MEDS: Cefotetan 2 GM in 0.9% NS 100 ML IV (07:20)
--- NOTE | 2023-08-02 07:30 | GALL_PTH ---
PATIENT: HOWARD LOCO LOC: [facility] [place] U#:[id number] AGE/SX: 18/F ROOM: RE08/02/[address]: Dr. Marvin Kennedy MD : 2005 BED: DIS: 08/02/2023 SPEC #: [id number] RECD: 08/02/23 10:11 STATUS: AMARA OLIVER #: [id number] ELISA: 08/02/23 07:[address]: Marvin Kennedy DEPT: SURGICAL PATHOLOGY RECD BY: Virginia Chandler ENTERED: 08/02/23 10:35 SP TYPE: SAULO SANCHEZ DR: Dr. Lisbet Martinez MD Tissues: Gallbladder, NOS Procedures: Surgery Specimen Level III HEADER OPERATION: Laparoscopic, cholecystectomy with IOC PRE-OP DIAGNOSIS: Choledocholithiasis TISSUE SUBMITTED: Gallbladder MICROSCOPIC DIAGNOSIS Gallbladder, cholecystectomy: Chronic ulcerated cholecystitis and cholelithiasis. Reactive epithelial changes. MAILE/ 08/03/2023 MICROSCOPIC DESCRIPTION Slides are reviewed. GROSS DESCRIPTION Received is one container labeled with the patient's name and designated gallbladder. The specimen consists of a gallbladder measuring 8.0 cm in length and up to 3.0 cm in diameter. The external surface is pink-williamson, smooth and glistening for the most part. Focally it is granular, hemorrhagic and contains cautery artifact. The gallbladder contains hemorrhagic bile and multiple multifaced yellowish-orange stones measuring in aggregate 5.0 x 5.0 x 2.0 cm and 0.4 to 0.6 cm in greatest dimension. The mucosa is bile-stained and without any mass lesions. The gallbladder wall measures up to 0.4 cm in thickness. Clinical Laboratory Aide sections from the gallbladder and the cystic duct are submitted in one cassette. MAILE: 08/02/23 TC:3 CPT: 35149
--- NOTE | 2023-08-02 07:35 | RAD_ITS ---
STUDY: INTRAOPERATIVE CHOLANGIOGRAM. REASON FOR EXAM: Female, 18 years old. Cholelithiasis. FLUOROSCOPY TIME (if supplied): ( 40.6 seconds ) minutes/seconds. 15.86 mGy. TECHNIQUE: An intraoperative Cholangiogram was performed by the surgeon. Imaging was provided. COMPARISON: None. FINDINGS: Contrast was injected. Imaging was obtained. Several filling defects are seen within the common bile duct suggestive of a retained calculi. There is flow of contrast into the duodenum. RAD/Cholangiogram/ O R,Initial IMPRESSION: Choledocholithiasis. Electronically Signed: Tato Tapia MD at 9:22 EDT ,
[2023-08-02] MEDS: Bupivacaine 0.25% 30 ML Vial (08:51)
--- NOTE | 2023-08-02 09:10 | PCM.OPRPT ---
Report of Operation Date of Procedure: 08/02/23 Pre-Operative Diagnosis: Choledocholithiasis Post-Operative Diagnosis: Choledocholithiasis and acute cholecystitis Surgery/Procedure Performed:: Laparoscopic cholecystectomy with cholangiograms Type of Anesthesia: General/Regional Specimen's removed: Gallbladder and contents Estimated Blood Loss (mL): 20 Description of Procedure: Patient was brought back to the operating room and general anesthesia was induced. The abdomen was prepped and draped in usual sterile fashion. A midline incision was made superior to the umbilicus and deepened to the fascia. Fascia was grasped and elevated and incised. A finger sweep was performed and a port was placed into the abdomen. The abdomen was insufflated 15 mmHg. Camera was placed into the abdomen and the falciform seem to be in the way and it was very long and white. It was difficult to workaround. Under direct visualization a subxiphoid 5 mm port was placed and 2 subcostal right upper quadrant 5 mm ports were placed. Patient was placed into reverse Trendelenburg position and the gallbladder was grasped and elevated. It was very inflamed down by the fundus. Dissection was carried out until the critical view of safety was obtained. The cystic artery was clipped and divided. After working my way around the cystic duct it appeared very large and dilated with several stones within it. I was unable to move the stones up higher into the gallbladder. Cholangiograms were then performed. The Harmon clamp was placed across the gallbladder and the needle was placed into the gallbladder. Under fluoroscopy contrast was instilled. It seemed that there was another stone at the cystic duct common duct junction. There were also stones higher up in the cystic duct and the duct was dilated. Due to the size of the duct Endoloop was selected. The gallbladder was then taken down from the liver in a dome down fashion using electrocautery. The plane between the gallbladder and the liver was very inflamed. Once the gallbladder was taken down to the cystic duct an Endoloop of Vicryl was placed around it and it was closed. Electrocautery was used to divide the gallbladder superior to the suture. It was then placed into an Endo Catch bag and removed. Next the gallbladder fossa was irrigated and suctioned dry and hemostasis was obtained using a combination of electrocautery and argon beam coagulation and hemoblast. Once there was good hemostasis the gallbladder fossa was inspected once more there was no bile leakage or bleeding. All of the abdomen was irrigated and suctioned dry and the air was allowed to desufflate from the abdomen. The midline fascia was closed with a [id number] 0 Vicryl suture. All the other incisions were injected with local anesthetic and closed with interrupted 4-0 Monocryl sutures. Steri-Strips and bandages were applied. Patient was awoken and taken to PACU in stable condition and tolerated the procedure well. Admit VTE Documentation VTE Mechan Device Prophylaxis: SCD's
--- NOTE | 2023-08-02 09:14 | DCINST_ITS ---
Discharge Instructions Procedure Gallbladder Diet Discharge Diet: Light diet - advance as tolerated Activity Discharge Activity: May Not Drive (for 2-3 days or while taking narcotic pain medications.) and - (Do not drive, work heavy equipment or sign legal documents for 24 hours.) May shower in (days): 1 Lifting Restrictions: 20 lbs for 2 weeks Additional Activity Instructions:: Pain medication may cause nausea. You should typically eat light foods as you take your pain medications. Pain medication may also cause constipation. If this is a problem for you, please discuss with your doctor. Alternate ibuprofen and Tylenol for pain control, oxycodone for breakthrough pain. Dressing / Incision Call your doctor if your incision/area has: Continuous Slow Oozing, Sudden Increased Bleeding, Increased Pain/ Swelling, Increased Redness and Foul Smelling Discharge Call your doctor if you observe: Fever of 101 or Higher Suture Line Care: Avoid Pulling/Pushing and Avoid Pinching/Bending Remove Dressing in: 2 days (Remove clear bandages in 2 days, remove Steri-Strips in 7 to 10 days) Cleanse incision/area with: Soap & Water Additional Dressing/Incision Instructions:: Leave operative bandaids on for 2 days. Follow Up Care Please Follow Up With: Marvin Kennedy MD When: Please call to schedule 2 week follow up appointment. [phone] Test Results: Test results from this visit will be discussed in further detail at your follow- up appointment, if applicable. Discharge Plan Admission Attending Provider: Marvin Kennedy Primary Care Provider: Lisbet Martinez Discharge Orders/Prescriptions Prescriptions: New oxycodone 5 mg Tablet 5 - 10 mg PO Q4H PRN PRN (Reason: Pain Score 4-10) 5 Days Qty: 20 0RF No Action acetaminophen 325 mg Tablet 650 mg PO Q6H PRN PRN (Reason: Pain 1-10 Or Fever>100.7) Qty: 0 0RF pantoprazole 40 mg tablet,delayed release (DR/EC) 40 mg PO DAILY drospirenone-ethinyl estradiol 3-0.03 mg tablet 1 tab PO DAILY Referrals / Follow Up: Lisbet Martinez MD [Primary Care Provider] - Disposition Disposition (needs filled in before D/C Order can be placed): Home, Self Care
[2023-08-02] MEDS: Acetaminophen 325 MG Tablet 650 MG PO (12:27)
== END 2023-08-02 15:06 | disposition home or self-care (01) ==
LOC: SDC 05:52 → AC 05:53
PROVIDERS: Anesthesiology; PCP Internal Medicine; Referring Provider Surgery; Visit Provider Surgery
PROC: (CPT 47610; principal; 2023-08-02 07:10)
DX: K80.10 Calculus of gallbladder with chronic cholecystitis without obstruction (principal); K80.42 Calculus of bile duct with acute cholecystitis without obstruction; K21.9 Gastro-esophageal reflux disease without esophagitis; Z79.899 Other long term (current) drug therapy
CPT/HCPCS: 47563; 74300; 76000; 81025; 88304; J7120; J2405

== ENCOUNTER 2023-10-23 12:11 | Day surgery (SDC) | payer OTHER, SELFPAY ==
[2023-10-23] VITALS (11 sets, daily range): BP systolic 103–113; BP diastolic 50–65; PULSE 64–81; RESP 16–18; TEMP 36.2–36.9; O2SAT 95–100; BMI 30.4
[2023-10-23] MEDS: Lactated Ringers 1,000 ML 15 ML IV (12:33)
[2023-10-23 12:36] LABS: Internal QC Validated? YES +Cl - CLEAR BKGD; Pregnancy, Urine Negative Negative
--- NOTE | 2023-10-23 12:50 | PRE.ANES_ITS ---
ASA Classification* ASA Classification ASA Classification: 2 Assessment & Plan Anesthesia* Anesthesia Assessment Anesthesia Assessment: Discussed sedation and/or anesthesia options, risks, benefits, and alternatives with patient/parents/legal guardian/POA. Questions invited. The patient/parents/legal guardian/POA seems to understand and agrees to proceed with anesthesia plan. Reviewed the physical assessment, medical history, allergy history and patient home medications list prior to surgery/procedure/anesthetic and documented any changes. Performed airway and anesthesia risk assessments. Anesthesia Type Anesthesia Type: MAC (see pre anesthesia record for full assessment) Anesthesia Focused Assessment* Temperature: 98.5 F Pulse Rate: 75 Blood Pressure: 113/65 Respiratory Rate: 18 Pulse Ox: 100 Airway Assessment Mouth opens: >3 cm Mallampati Score: II Focused Labs Anesthesia Preop lab: CBC WBC 5.8 K/mm3 (4.4-11.0) 07/27/23 05:05 RBC 4.04 M/mm3 (4.2-5.4) L 07/27/23 05:05 Hgb 12.2 g/dL (12.0-15.0) 07/27/23 05:05 Hct 37.4 % (37-47) 07/27/23 05:05 Plt Count 365 K/mm3 (150-450) 07/27/23 05:05 CHEMISTRY Potassium 3.6 mmol/L (3.5-5.1) 07/27/23 05:05 Sodium 139 mmol/L (136-145) 07/27/23 05:05 Magnesium 2.0 mg/dL (1.6-2.6) 07/26/23 10:55 Phosphorus 3.2 mg/dL (2.5-4.9) 07/27/23 05:05 BUN 6 mg/dL (7-18) L 07/27/23 05:05 Creatinine 0.54 mg/dL (0.55-1.02) L 07/27/23 05:05 Glucose 81 mg/dL (74-106) 07/27/23 05:05 COAG Urine Test Negative Negative 10/23/23 12:20 Pre-Assessment Diagnosis/Proposed Procedure Planned Operative Procedure(s): ERCP Anesthesia History Anesthesia History - health unit supervisor: Anesthesia History - health unit supervisor Hx Hospitalization Yes: 07/2023 GALLBLADDER 10/18/23 12:08 Any Problems With Anesthesia Yes: NAUSEA 10/18/23 12:08 Cholinesterase deficiency No 10/18/23 12:08 You/Your Family Experience No 10/18/23 12:08 fever (hyperthermia) with Relationship Recent Exposure to Contagious No 10/23/23 12:35 Disease Does patient have nerve No 10/18/23 12:08 stimulator Patient instructed to have device shut off --Does patient have Pacemaker No 10/23/23 12:35 or ICD? When Was Last Pacemaker Check QUESTION #4 FULL TEXT: You/Your Family Experience fever (hyperthermia) with Anesthesia Last Oral Intake Last Oral intake: Last Oral Intake NPO since 00:00 10/23/23 12:35 Meds taken in AM with sips of No 10/23/23 12:35 water? Meds patient instructed to take am of surgery PONV PONV - health unit supervisor: PONV - health unit supervisor Female Yes 10/18/23 12:08 HX of Motion Sickness No 10/18/23 12:08 HX of N/V After Surgery Yes 10/18/23 12:08 Non-Smoker No 10/18/23 12:08 Duration of Surgery greater No 10/18/23 12:08 than 60 minutes Number of Risk Factors 2 10/18/23 12:08 PONV Score Moderate Risk 10/18/23 12:08 Height & Weight Height & Weight: Anesthesia: Height & Weight Height 5 ft 3 in 10/23/23 12:35 Weight: 78.018 kg 10/23/23 12:35 Body Mass Index (BMI) 30.4 10/23/23 12:35 Respiratory Assessment Respiratory Assessment - health unit supervisor: Respiratory Tract Infection Hx - health unit supervisor Hx Respiratory Tract Infection No 10/18/23 12:08 STOP Sleep Apnea STOP Sleep Apnea - health unit supervisor: STOP Sleep Apnea - health unit supervisor Hx Hypertension No 10/18/23 12:08 Hx Sleep Apnea No 10/18/23 12:08 CPAP BIPAP Do you snore loudly (louder No 10/18/23 12:08 than talking or can be heard Do you often feel tired/ No 10/18/23 12:08 fatigued/ sleepy during daytime? Has anyone observed you stop No 10/18/23 12:08 breathing during sleep? STOP Results Negative 10/18/23 12:08 QUESTION #5 FULL TEXT : Do you snore loudly (louder than talking or can be heard through closed doors)? Tobacco Use History Tobacco Use History - health unit supervisor: Tobacco Use History - health unit supervisor Tobacco Use Smoking Status Never smoker 10/18/23 12:08 Hx Tobacco Use No 10/18/23 12:08 Years Smoking Packs Smoked per Day Smoking Cessation Date was within the last 15 years Hx Smoking Cessation Date Hx Smoking Cessation Counseling Hematologic Medial History Hematologic Hx - health unit supervisor: Hematologic Medical Hx - physician general practice Hx of Blood Transfusion No 10/18/23 12:08 Hx of Transfusion in last 3 No 10/18/23 12:08 Months Date of Last Transfusion (if within last 3 months) Ever experience any problems No 10/18/23 12:08 with transfusion(s)? Specify any problems Hx of Preganancy in last 3 No 10/18/23 12:08 Months Nurse Filling Out Transfusion [id number] 10/18/23 12:08 & Questions: Date: 10/18/23 10/18/23 12:08 Time: 12:10 10/18/23 12:08 Patient unable to answer at this time (ie. confused, unrespo /Reproduction History /Reproductive History - health unit supervisor: /Reproductive Hx- health unit supervisor Hx Now Gestational Age (in weeks): EDC: Hx Hx Para Hx Section SAB No 10/18/23 12:08 Active Medications Active Medications: Current Medications Generic Name Dose Route Start Last Admin Trade Name Freq PRN Reason Stop Dose Admin Lactated Ringer's 1,000 mls @ 15 mls/hr 10/23/23 12:15 10/23/23 12:33 IV 15 mls/hr .Q48H HARESH Administration PFSH Medical History Wears glasses Gastric reflux Non-smoker Home Medications ?Medication ?Instructions ?Recorded ?Last Taken ?Type drospirenone 3 mg-ethinyl 1 tab PO DAILY control 05/12/23 08/01/23 History estradiol 0.03 mg tablet pantoprazole 40 mg tablet,delayed 40 mg PO DAILY PRN GERD 07/31/23 08/01/23 History release Allergy/AdvReac Type Severity Reaction Status Date / Time No Known Allergies Allergy Verified 10/23/23 12:32 Family History Mother Breast cancer Myocardial infarction Grandmother Breast cancer Surgical History S/P laparoscopic cholecystectomy History of ERCP Social History adopted: No household members: family 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
--- NOTE | 2023-10-23 13:07 | HP.PCM_ITS ---
History and Physical Date of Admission: 10/23/23 HOWARD LOCO, is a 18 F who presents to the office today for initial consult. ERCP 07.27.23 Choledocholithiasis was found. Complete removal was accomplished by biliary sphincterotomy and balloon extraction. A biliary sphincterotomy was performed. The biliary tree was swept.The left main hepatic duct was successfully dilated. One temporary stent was placed into the common bile duct. *BGI established 10.16.23 pt reports that she is feeling well overall and denies GI symptoms of concern at this time. Gall bladder was removed 08.02.23 and pt reports she has been feeling well since. Pt reports that she would like to follow up on stent removal. Pt continues with pantoprazole. ROS Const Constitutional: No fatigue, fever(s) or weight change ENT ENT: No difficulty swallowing Gastro GI: No abdominal pain, belching, bloating, change in bowel habits, change in stool character, coffee ground emesis, constipation, cramping, diarrhea, heartburn, difficulty swallowing, feeling full early, excessive flatus, incontinent of stools, Vomiting blood/hematemesis, Blood in stool, loose stools, Black,tarry stools, nausea/dyspepsia, pain with swallowing, vomiting or other Musc Musculoskeletal: No joint pain Skin Skin: No yellowing of the eye or itchy eyes Psych Psychiatric: No anxiety and No depression Endo Endocrine: No fatigue or weight change Aller/Imm Allergy/Immunologic: No itchy eyes Mark/Lymp Hematologic/Lymphatic: No easy bleeding or easy bruising Exam Const General: cooperative, healthy appearing, no acute distress, well developed, not diaphoretic and not ill appearing Nutritional Appearance: well nourished Orientation: alert and oriented x3 Limitations: mental status not altered [facility] Head: normal to inspection, normocephalic and atraumatic Ears: hearing grossly normal bilaterally Face and sinus: normal facial exam Mouth: oral mucosae normal and moist mucous membranes Teeth and gingiva: dentition normal Throat: posterior oropharynx normal Eyes Conjunctivae: conjunctival abnormality bilaterally conjunctival icterus (mild) Pupils: PERRL Chest Chest palpation & inspection: normal inspection of the chest Resp Effort & Inspection: normal respiratory effort, able to speak in complete sentences, no audible wheezes and no cough Auscultation: Bilateral: Clear to Auscultation Cardio Rate: regular rate Rhythm: regular rhythm Heart Sounds: S1 normal, S2 normal and no murmurs GI Inspection: normal to inspection and non-distended Auscultation: normal bowel sounds Palpation: soft, no hepatosplenomegaly and tender in the epigastrum (minimal) and suprapubicly (minimal); Mcduffie's sign negative Skin General: no rashes or lesions noted and dry skin Wounds: no wounds Neuro General: patient alert and patient oriented x3 Cranial Nerves: PERRL Speech: speech normal Extrem General: normal to inspection and no edema Psych Appearance: grossly normal Affect: normal affect Attitude: cooperative Assessment and Plan Assessment and Plan (1) Choledocholithiasis: Status: Acute (2) S/P laparoscopic cholecystectomy: Status: Acute Plan: 18-year-old status post cholecystectomy and ERCP with stone removal and stent replacement. She is doing very well without any abdominal pain, cramping, nausea, diarrhea. She has no history of hypercholesterolemia or hypocalcemia. She is no history of hemolysis or any other risk factors for gallstone disease. We will schedule her for stent removal. \I have examined the patient and the H&P has been reviewed. There are no clinical changes since date of exam.
--- NOTE | 2023-10-23 13:10 | RAD_ITS ---
STUDY: ERCP. REASON FOR EXAM: Female, 18 years old. Right upper quadrant pain. FLUOROSCOPY TIME (if supplied): ( 6 minutes and 28 seconds ) minutes/seconds. 177 mGy. 17 fluoroscopic images were obtained. TECHNIQUE: An ERCP was performed by the android developer. Contrast was injected. COMPARISON: None. FINDINGS: Multiple filling defects are seen within the common bile duct. Findings suggestive of choledocholithiasis. Biliary stent is seen. RAD/ERCP Biliary/Pancreas IMPRESSION: Multiple filling defects within the common bile duct suggestive of choledocholithiasis. Electronically Signed: Tato Tapia MD at 13:17 EDT ,
--- NOTE | 2023-10-23 15:05 | PCM.POST.ANE ---
Anesthesia: Postop Eval I Current Vital Signs Temperature: 97.1 F Pulse Rate: 72 Blood Pressure: 107/55 Respiratory Rate: 16 Pulse Ox: 97 Oxygen Delivery Method: Room Air Assessment Airway patent: Yes Spontaneous unlabored respirations: Yes Mental status: Awake and Calm nausea: No Vomiting: No Anesthesia Complication: No Fluid Hydration Crystalloid volume administer (ml): 900 Total IV fluid infused: 900 Progress Note Anesthesia document: Postop Eval 1 completed: Yes
--- NOTE | 2023-10-23 15:11 | OP.CCLET_ITS ---
10/23/2023 Crystal Wallace Md Re : ERCP procedure for Qiana Crowder Dear Rodrigo This procedure was performed on Monday, October 23, 2023. My impressions and recommendations are as follows: Impressions : - Evidence of a previous cholecystectomy was found. - A long cystic duct was seen on the cholangiogram. - The entire biliary tree was moderately dilated, with a stone causing an obstruction. - Choledocholithiasis was found. Complete removal was accomplished by biliary sphincterotomy and balloon extraction. - A biliary sphincterotomy was performed. - The biliary tree was swept. - The left main hepatic duct was successfully dilated. - Lithotripsy was successful. - The biliary tree was swept. - One stent was removed from the biliary tree. Recommendations : My findings are described in the full procedure note, which is enclosed. If I can be of further assistance, please feel free to contact me at . Sincerely, Marko Lopez DO 10/23/2023 3:11:14 PM This report has been signed electronically.
--- NOTE | 2023-10-23 15:11 | OP.ERCP_ITS ---
Patient Name: Qiana Crowder Procedure Date: 10/23/2023 1:02 PM Date of : 2005 Age: 18 Procedure: ERCP Indications: Bile duct stone(s), Stent removal Providers: Marko Lopez DO Referring MD: Crystal Wallace Md Medicines: Monitored Anesthesia Care Patient Profile: This is a 18 year old female. Refer to note in patient chart for documentation of history and physical. Patient has symptoms of acute right upper quadrant abdominal pain, chronic right upper quadrant abdominal pain and chronic dyspepsia. Complications: No immediate complications. Procedure: Pre-Anesthesia Assessment: - Prior to the procedure, a History and Physical was performed, and patient medications and allergies were reviewed. The patient is competent. The risks and benefits of the procedure and the sedation options and risks were discussed with the patient. All questions were answered and informed consent was obtained. Patient identification and proposed procedure were verified by the physician in the pre-procedure area. Mental Status Examination: alert and oriented. Airway Examination: normal oropharyngeal airway and neck mobility. Respiratory Examination: clear to auscultation. CV Examination: normal. Prophylactic Antibiotics: The patient does not require prophylactic antibiotics. Prior Anticoagulants: The patient has taken no anticoagulant or antiplatelet agents. ASA Grade Assessment: II - A patient with mild systemic disease. After reviewing the risks and benefits, the patient was deemed in satisfactory condition to undergo the procedure. The anesthesia plan was to use monitored anesthesia care (MAC). Immediately prior to administration of medications, the patient was re-assessed for adequacy to receive sedatives. The heart rate, respiratory rate, oxygen saturations, blood pressure, adequacy of pulmonary ventilation, and response to care were monitored throughout the procedure. The physical status of the patient was re-assessed after the procedure. After obtaining informed consent, the scope was passed under direct vision. Throughout the procedure, the patient's blood pressure, pulse, and oxygen saturations were monitored continuously. The Duodenoscope was introduced through the mouth, and advanced to the duodenum and used to inject contrast into the bile duct and ventral pancreatic duct. The ERCP was accomplished without difficulty. The patient tolerated the procedure well. Scope In: 1:22:43 PM Scope Out: 2:49:16 PM Total Procedure Duration Time 1 hour 26 minutes 33 seconds Findings: The body and frame technician film was normal. The esophagus was successfully intubated under direct vision. The scope was advanced to a normal major papilla in the descending duodenum without detailed examination of the pharynx, larynx and associated structures, and upper GI tract. The upper GI tract was grossly normal. The bile duct was deeply cannulated with the short-nosed traction sphincterotome. Contrast was injected. I personally interpreted the bile duct and pancreatic duct images. There was brisk flow of contrast through the ducts. Image quality was excellent. Contrast extended to the entire biliary tree. Evidence of a previous cholecystectomy was seen in the entire opacified area. A long cystic duct originated in the lower third of the main bile duct. The in the biliary system contained multiple stones, the largest of which was 10 mm in diameter. The entire biliary tree was moderately dilated and diffusely dilated, with a stone causing an obstruction. The largest diameter was 9 mm. A straight Roadrunner wire was passed into the biliary tree. A 5 mm biliary sphincterotomy was made with a traction (standard) sphincterotome using ERBE electrocautery. There was no post-sphincterotomy bleeding. The biliary tree was swept with a 12 mm balloon starting at the bifurcation. All stones were removed. Dilation of the left main hepatic duct with a 12-13.5-15 mm balloon (to a maximum balloon size of 12 mm) dilator was successful. The bile duct was explored endoscopically using the SpBeauty Notedlass direct visualization system. The SpyScope was advanced to the cystic duct. Visibility with the scope was excellent. The lower third of the main bile duct, cystic duct and gallbladder contained multiple stones, the largest of which was 6 mm in diameter. The in the biliary system were normal. Electrohydraulic lithotripsy was successful. The biliary tree was swept with a 12 mm balloon starting at the bifurcation. All stones were removed. One stent was removed from the biliary tree using a snare. The stent was found to be partially occluded via the water column test. Impression: - Evidence of a previous cholecystectomy was found. - A long cystic duct was seen on the cholangiogram. - The entire biliary tree was moderately dilated, with a stone causing an obstruction. - Choledocholithiasis was found. Complete removal was accomplished by biliary sphincterotomy and balloon extraction. - A biliary sphincterotomy was performed. - The biliary tree was swept. - The left main hepatic duct was successfully dilated. - Lithotripsy was successful. - The biliary tree was swept. - One stent was removed from the biliary tree. Procedure Code(s): --- Professional --- 05992, Endoscopic retrograde cholangiopancreatography (ERCP); with destruction of calculi, any method (eg, mechanical, electrohydraulic, lithotripsy) 49222, 59,51, Endoscopic retrograde cholangiopancreatography (ERCP); with trans-endoscopic balloon dilation of biliary/pancreatic duct(s) or of ampulla (sphincteroplasty), including sphincterotomy, when performed, each duct 82355, Endoscopic retrograde cholangiopancreatography (ERCP); with removal of foreign body(s) or stent(s) from biliary/pancreatic duct(s) 90232, 59, Endoscopic retrograde cholangiopancreatography (ERCP); with sphincterotomy/papillotomy 94315, Endoscopic cannulation of papilla with direct visualization of pancreatic/common bile duct(s) (List separately in addition to code(s) for primary procedure) 37780, 26, Combined endoscopic catheterization of the biliary and pancreatic ductal systems, radiological supervision and interpretation CPT copyright 2021 [employer]. All rights reserved. The codes documented in this report are preliminary and upon delphi programmer review may be revised to meet current compliance requirements. Marko Lopez DO 10/23/2023 3:11:14 PM This report has been signed electronically. Number of Addenda: 0 Note Initiated On: 10/23/2023 1:02 PM
--- NOTE | 2023-10-23 15:46 | PCM.POSTANE2 ---
Anesthesia Postop Eval I Sum Postop Eval Completion status Anesthesia document: Postop Eval 1 completed: Yes Anesthesia Postop Eval I Summary Anesthesia Postop Eval I Summary: Anesthesia Postop Eval I: Assessment Summary Airway patent Yes 10/23/23 15:06 [email or web address] Spontaneous unlabored Yes 10/23/23 15:06 [email or web address] respirations Mental status Awake,Calm 10/23/23 15:06 [email or web address] nausea No 10/23/23 15:06 [email or web address] Vomiting No 10/23/23 15:06 [email or web address] Anesthesia Postop Eval I: Fluid Summary Crystalloid volume administer 900 10/23/23 15:06 [email or web address] (ml) Colloids volume administered ( ml) Blood Product volume administered (ml) Total IV fluid infused 900 10/23/23 15:06 [email or web address] Anesthesia Postop Eval I: Summary Notes Anesthesia Complication No 10/23/23 15:06 [email or web address] Anesthesia Complication Comment: Post-operative progress note Anesthesia: Postop Eval II Evaluation Mental status: Awake and Calm Pain Level: 1 nausea: No Vomiting: No Complications Anesthesia Complication: No
== END 2023-10-23 16:28 | disposition home or self-care (01) ==
LOC: EN 12:12 → AC 12:13
PROVIDERS: Anesthesiology; PCP Internal Medicine; Referring Provider Internal Medicine; Visit Provider Internal Medicine Gastroenterology
PROC: (CPT 43260; principal; 2023-10-23 13:05)
DX: K80.50 Calculus of bile duct without cholangitis or cholecystitis without obstruction (principal); K21.9 Gastro-esophageal reflux disease without esophagitis
CPT/HCPCS: 43265; 43275; 43262; 43273; 74330; 76000; 81025; J7120; J2405

== ENCOUNTER 2023-10-24 05:36 | Inpatient (IN) | payer OTHER, SELFPAY ==
[2023-10-24] VITALS (9 sets, daily range): BP systolic 110–137; BP diastolic 65–82; PULSE 81–111; RESP 16–22; TEMP 36.6–38.1; O2SAT 97–100; BMI 30.5
--- NOTE | 2023-10-24 05:53 | CT_ITS ---
EXAM: CT ABDOMEN AND PELVIS WITH INTRAVENOUS CONTRAST CLINICAL INDICATION: Postoperative abdominal pain. ERCP yesterday with biliary stent removal. TECHNIQUE: Helically acquired images were obtained of the abdomen and pelvis with intravenous contrast. This CT exam was performed using one or more of the following dose reduction techniques: automated exposure control, adjustment of the mA and/or kV according to patient size, and/or use of iterative reconstruction technique. CONTRAST: IV 100mL Isovue-370 RADIATION DOSE: CTDIvol = 11.99 mGy, DLP = 1294.58 mGy-cm COMPARISON: No relevant prior studies available. FINDINGS: LOWER THORAX: Unremarkable. Lung bases are clear. No cardiomegaly. No significant pericardial effusion. ABDOMEN: LIVER: Unremarkable. Homogeneous. No focal mass. GALLBLADDER AND BILE DUCTS: The gallbladder is surgically absent. There is no demonstrated bile duct dilatation. PANCREAS: Unremarkable. No focal cystic or solid mass. SPLEEN: Unremarkable. Normal size without focal cystic or solid mass. ADRENALS: Unremarkable. No nodules. KIDNEYS AND URETERS: Unremarkable. Normal renal size and position. No hydronephrosis. STOMACH AND BOWEL: Unremarkable. No stomach or bowel distention. No focal inflammatory change. PELVIS: APPENDIX: The appendix is seen on axial images 89-93. There is no evidence for acute appendicitis. BLADDER: Unremarkable. REPRODUCTIVE: Unremarkable as visualized. No mass. ABDOMEN and PELVIS: INTRAPERITONEAL SPACE: Unremarkable. No ascites or other fluid collection. No free air. BONES/JOINTS: Unremarkable. No suspicious lytic or blastic abnormality. SOFT TISSUES: Unremarkable. No discrete abdominal or pelvic wall hernia. VASCULATURE: Unremarkable. Abdominal aorta is non-dilated. LYMPH NODES: Unremarkable. No enlarged lymph nodes. CT/Abdomen/Pelvis W IV Cont ONLY IMPRESSION: 1. Previous cholecystectomy. 2. No evidence for acute pathology. No demonstrated bile duct dilatation. Electronically Signed: Yoel Dasilva MD at 7:23 EDT Reading Location ID and State: [facility] / [place] , Service support ,
[2023-10-24] MEDS: Acetaminophen 500 MG Tablet 1000 MG PO (06:01)
--- NOTE | 2023-10-24 06:01 | EDS_ITS ---
HPI History of Present Illness Chief Complaint: Abd Pain Informant: patient and family Narrative Narrative: Patient is a 18-year-old female with past medical history of gastritis and choledocholithiasis. She underwent a laparoscopic cholecystectomy in July of this year. However she still had retained stones and developed pain and jaundice and therefore had an ERCP yesterday. The patient had the procedure reportedly from approximately 1 PM to 3 PM and then was in PACU and discharged around 4/4:30 p.m.. She states she was doing well but during the night began with subjective fevers and chills and she took her temperature and it was elevated at 101.6. Secondary to the recent procedure and now the fever she contacted her GI physician/. Friend and advised her to come into the hospital for evaluation. The patient states that other than the fevers and chills there is no overt symptoms such as dysuria nausea vomiting or diarrhea. She denies any chest pain cough or shortness of breath. She denies any history of immunosuppression [facility] Medical History Wears glasses Gastric reflux Non-smoker Home Medications ?Medication ?Instructions ?Recorded ?Last Taken ?Type drospirenone 3 mg-ethinyl 1 tab PO DAILY control 05/12/23 08/01/23 History estradiol 0.03 mg tablet pantoprazole 40 mg tablet,delayed 40 mg PO DAILY PRN GERD 07/31/23 08/01/23 History release Allergy/AdvReac Type Severity Reaction Status Date / Time No Known Allergies Allergy Verified 10/23/23 12:32 Family History Mother Breast cancer Myocardial infarction Grandmother Breast cancer Surgical History S/P laparoscopic cholecystectomy History of ERCP Social History adopted: No household members: family 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 Smoking Status: Never smoker Electronic Cigarette Use: not used alcohol intake: never substance use type: does not use caffeine: Yes (2) Type: carbonated beverages and tea frequency: 1-2 times per week seatbelt use: always do you feel safe at home: Yes ROS ROS ED Constitutional Constitutional ED: Reports chills and fever(s) Eyes Eyes: Denies change in vision ENT ENT ED: Denies rhinorrhea or sore throat Cardiovascular Cardiovascular: Denies chest pain Respiratory/Chest Respiratory/Chest: Denies cough or dyspnea Gastrointestinal Gastrointestinal: Denies abdominal pain, diarrhea, nausea or vomiting Genitourinary Genitourinary ED: Denies dysuria or hematuria Musculoskeletal Musculoskeletal: Denies myalgias Integumentary Denies rash Neurologic Neurologic: Denies headache(s) Hematologic/Lymphatic Hematologic/Lymphatic: Denies easy bleeding or easy bruising EXAM Physical Exam Const Vital Signs: 10/24/23 05:36 10/24/23 05:41 10/24/23 06:00 Temperature 97.8 F 97.8 F 100.5 F H Temperature Source Temporal Oral Oral Pulse Rate 111 H 111 H Respiratory Rate 18 18 Blood Pressure 137/79 H 137/79 H Blood Pressure Mean 98 98 Pulse Ox 97 97 Oxygen Delivery Method Room Air Room Air 10/24/23 06:41 Temperature 99.2 F H Temperature Source Oral Pulse Rate 107 H Respiratory Rate 22 H Blood Pressure 132/82 H Blood Pressure Mean 98 Pulse Ox 98 Oxygen Delivery Method Room Air Positive well nourished and well developed General Appearance ED: well developed; Negative for pallor HEENT Reports moist mucous membranes HEENT Narrative: There is mild erythema in the posterior pharynx but no tongue or lip swelling no oral lesions no airway edema or compromise No secondary findings to suggest infection Eyes PERRL and EOMs intact bilaterally General Eye ED: Negative for scleral icterus Neck supple Neck Narrative: No nuchal rigidity or meningeal signs No crepitance palpated Chest Wall palpation of chest normal Resp normal respiratory effort and clear to auscultation bilaterally Resp Narrative: Breath sounds are slightly diminished throughout but overall clear to auscultation without nasal flaring retractions tachypnea or accessory muscle use Cardio regular rhythm Rate: tachycardic and other GI non-distended GI Narrative: Abdomen is soft and nondistended with normal active bowel sounds. There is mild pain with palpation in the midepigastric region as well as the right lower quadrant without voluntary guarding or rigidity. No peritoneal signs. No increased tympany. No pulsatile mass or fluid wave Auscultation: normoactive bowel sounds Palpation: soft Extremity normal to inspection Extremity Narrative: No asymmetric edema no pitting edema negative Homans' sign bilaterally Neuro oriented x3, CN's II-XII intact bilaterally and no sensory deficits noted Sensorium / Orientation: alert Motor Exam: strength 5/5 throughout Psych mental status grossly normal Skin no rashes or lesions noted Skin Narrative: Surgical wounds to the abdomen from previous cholecystectomy are clean dry and intact without secondary changes to suggest infection General Skin Exam: Negative for jaundice or pallor MDM MDM MDM Narrative Medical decision making narrative: Patient arrived to the ER normotensive but slightly tachycardic. She denied taking any Tylenol or Motrin prior to arrival and oral temperature upon arrival to the ER is a true fever at 100.5. Secondary to her recent surgical procedure there is concern for postoperative infection. There is also concern for UTI versus viral infection such as COVID influenza or RSV. Patient may also have potential pneumonia or simply fever due to atelectasis. She had a laparoscopic cholecystectomy in July and then an ERCP in September and as she is on oral hormone control there is concern this could be related to a pulmonary embolus. Therefore a CTA of the chest will be obtained as well as a CT scan of the abdomen and pelvis to rule out PE or pneumonia and or potential abdominal infection. As the patient is triggering sepsis criteria a blood culture will be obtained as there is a national shortage on blood culture tubes only 1 set will be ordered. A 30 mL/kg fluid bolus would equate to essentially 2.35 L and therefore patient will be given a 3 L fluid bolus to cover sepsis criteria and she will be started on Zosyn. At this time CTs and COVID and urine test are still pending and therefore the patient will be signed out to the day physician Dr. Murphy. He we will follow the COVID and urine results as well as CT scan report. He will reach out to the grain wafer machine operator/Dr. Lopez regarding the results and to discuss plan of care going forward. History & Record Review Discussion w/independent historian: Patient and Family Lab Data Attestation: I reviewed the patient's lab results. Labs: Laboratory Results - last 24 hr 10/24/23 06:10 WBC 18.4 H RBC 4.23 Hgb 12.8 Hct 38.0 MCV 89.8 MCH 30.3 MCHC 33.7 RDW Std Deviation 38.6 RDW Coeff of Raffi 11.9 Plt Count 339 MPV 10.1 Immature Gran % (Auto) 0.500 Neut % (Auto) 87.8 H Lymph % (Auto) 5.2 L [place] % (Auto) 6.2 Eos % (Auto) 0.1 Baso % (Auto) 0.2 Absolute Neuts (auto) 16.2 H Absolute Lymphs (auto) 0.95 Nucleated RBC % 0 PT 12.8 INR 1.0 APTT 24.7 Sodium 137 Potassium 3.2 L Chloride 104 Carbon Dioxide 25.0 Anion Gap 8 BUN 7 Creatinine 0.73 Estim Creat Clear Calc 121.79 Est GFR (MDRD) Af Amer 129 Est GFR (MDRD) Non-Af 107 BUN/Creatinine Ratio 9.5 L Glucose 122 H Lactic Acid 2.3 H* Calcium 8.7 Total Bilirubin 1.00 Direct Bilirubin 0.50 H AST 142 H ALT 135 H Alkaline Phosphatase 180 H Total Protein 7.0 Albumin 2.9 L Globulin 4.1 Lipase 32 Discharge Plan Triage Chief Complaint: Abd Pain ED Provider: Lico Cr Dx/Rx/DC Orders Clinical Impression: Pyrexia Prescriptions: No Action pantoprazole 40 mg tablet,delayed release (DR/EC) 40 mg PO DAILY PRN (Reason: GERD) drospirenone-ethinyl estradiol 3-0.03 mg tablet 1 tab PO DAILY Primary Care Provider: Crystal Wallace Referrals: Crystal Wallace MD [Primary Care Provider] - Print Language: Thai
--- NOTE | 2023-10-24 06:05 | CT_ITS ---
EXAM: CT ANGIOGRAPHY CHEST WITHOUT AND WITH INTRAVENOUS CONTRAST CLINICAL INDICATION: chest pain chest pain TECHNIQUE: Helically acquired angiography images were obtained of the chest without and with intravenous contrast. This CT exam was performed using one or more of the following dose reduction techniques: automated exposure control, adjustment of the mA and/or kV according to patient size, and/or use of iterative reconstruction technique. MIP reconstructed images were created and reviewed. CONTRAST: IV 100mL Isovue-370 RADIATION DOSE: CTDIvol = 11.99 mGy, DLP = 1294.58 mGy-cm COMPARISON: CT scan abdomen and pelvis done today. FINDINGS: PULMONARY ARTERIES: Unremarkable. Normal in caliber. No evidence of pulmonary embolism. AORTA: Unremarkable. Normal in caliber. No evidence of dissection. GREAT VESSELS OF AORTIC ARCH: Unremarkable. Normal in caliber. No evidence of dissection. LUNGS AND PLEURAL SPACES: Unremarkable. No mass. No consolidation or edema. No pleural effusion or thickening. No pneumothorax. HEART: Unremarkable. Heart size is normal. No pericardial effusion. No significant coronary artery calcifications. MEDIASTINUM: Unremarkable. No mediastinal or hilar adenopathy. Esophagus is unremarkable. No hiatal hernia. THYROID: Unremarkable. No thyroid lesions. BONES/JOINTS: Unremarkable. No suspicious lytic or blastic abnormality. CT/CTA Chest W/WO Contrast IMPRESSION: No evidence for pulmonary embolism, aortic aneurysm, or aortic dissection. No evidence for acute cardiopulmonary pathology. Electronically Signed: Yoel Dasilva MD at 7:26 EDT Reading Location ID and State: [facility] / [place] , Service support ,
[2023-10-24] MEDS: 0.9% Normal Saline (1000mL) 1,000 ML 999 ML IV ×3 (06:09→07:40)
[2023-10-24 06:21] LABS: Absolute Lymphocyte Count 0.95 X10^3/uL (0.83-4.51); Absolute Neutrophil Count 16.2 X10^3/uL (2.0-7.7); Basophil# 0.04 X10^3/uL; Basophil% 0.2 % (0-1); Eosinophil# 0.01 X10^3/uL; Eosinophils% 0.1 % (0-5); Hemoglobin 12.8 g/dL (12.0-15.0); Lymphocyte # 0.95 X10^3/ul (0.83-4.51); Lymphocyte % 5.2 % (19-41); Mean Corp Hgb Conc 33.7 g/dL (32-36); Mean Corpuscular Hgb 30.3 pg (27.0-32.0); Mean Corpuscular Volume 89.8 fL (81-99); Mean Platelet Vol. 10.1 fl (6.2-12.0); Monocyte# 1.14 X10^3/uL; Monocyte% 6.2 % (0-10); NRBC Flagged by Analyzer 0 % (0-5); Neutrophil # 16.18 X10^3/uL (2.7-7.7); Neutrophil % 87.8 % (47-70); Platelet Count 339 K/mm3 (150-450); RBC Distribution Width CV 11.9 % (11.6-14.6); RBC Distribution Width SD 38.6 fl (35.1-43.9); Red Blood Count 4.23 M/mm3 (4.2-5.4); White Blood Count 18.4 K/mm3 (4.4-11.0)
[2023-10-24 06:35] LABS: Prothrombin Time (Protime)PT. 12.8 SECONDS (11.7-14.9)
[2023-10-24 06:36] LABS: Partial Thromboplast Time 24.7 Seconds (24.1-36.2)
[2023-10-24 06:40] LABS: AST(SGOT) 142 U/L (15-37); Alanine Aminotransfer ALT/SGPT 135 U/L (13-56); Albumin, Serum 2.9 g/dL (3.2-5.0); Alkaline Phosphatase 180 U/L (45-117); Anion Gap 8 (5-15); BUN 7 mg/dL (7-18); BUN/Creat Ratio 9.5 RATIO (10-20); Calcium,Total 8.7 mg/dL (8.5-10.1); Chloride 104 mmol/L (98-107); Creatinine, Serum 0.73 mg/dL (0.55-1.02); EST Glomerular Filtration Rate 107 mL/min (>60); Est Glom Filt Rate - Afr Amer 129 mL/min (>60); Estimated Creatinine Clearance 121.79 ml/min; Globulin 4.1 g/dL (2.2-4.2); Glucose 122 mg/dL (74-106); Lipase 32 U/L (13-75); Potassium 3.2 mmol/L (3.5-5.1); Sodium Level 137 mmol/L (136-145)
[2023-10-24 06:57] LABS: Bacteria 0 SEEN /hpf (None Seen); Mucous, Urine 0 SEEN /hpf (<or=2+); Red Blood Cells-Urine 0 SEEN /hpf (0-5); White Blood Cells 0 SEEN /hpf (0-5)
[2023-10-24] MEDS: Piperacil/Tazobactam 3.375 GM in 0.9% Normal Saline (50mL MB+) 50 ML IV ×3 (06:58→22:12)
[2023-10-24 06:59] LABS: Lactic Acid 2.3 mmol/L (0.4-1.9)
[2023-10-24 07:01] LABS: Color, Urine Yellow (Yellow); Glucose, Dipstick Normal (Normal); Ketone-Dipstick Negative (Negative); Leukocyte Esterase-Dipstick Negative /ul (Negative); Nitrite-Dipstick Negative (Negative); Occult Blood-Urine Negative /ul (Negative); Protein-Dipstick Negative (Negative); Specific Gravity, Urine 1.005 (1.002-1.030); Urine Bilirubin Dipstick Negative (Negative); Urine Clarity Clear (Clear); Urine Urobilinogen Normal (Normal)
[2023-10-24 07:52] LABS: Squamous Epithelial Cells - UA 0-5 SEEN /hpf (5-10)
--- NOTE | 2023-10-24 08:19 | NURSING ---
DR MOSLEY FOR DR SINGH
--- NOTE | 2023-10-24 08:36 | NURSING ---
MED SURG KOTSJAYDEN FEVER, STATUS POST CYSTIC DUCT STONE REMOVAL
[2023-10-24] MEDS: 0.9% Normal Saline (1000mL) 1,000 ML 100 ML IV ×2 (10:08→19:58)
[2023-10-24 10:19] LABS: Reflex Lactate? Y
--- NOTE | 2023-10-24 13:50 | PCM.HP.STD ---
HPI - General General Date of Admission: 10/24/23 HPI Narrative HOWARD LOCO, is a 18 F who presents to the hospital with fever and abdominal pain. She had a laparoscopic cholecystectomy back in July and at that time had a stent placed. Yesterday she had an ERCP for stent removal and was found to have multiple gallstones that needed to be removed as well and she had lithotripsy. Last night she was doing okay and then early this morning she developed fevers and chills and abdominal pain in the right upper quadrant. Workup is otherwise negative however this could just be due to edema in the common bile duct for the instrumentation during yesterday's ERCP. UA was unremarkable and CTA of the chest was negative for PE or infection. CT of the abdomen and pelvis was also unremarkable for any signs of infection. 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 Smoking Status: Never smoker Electronic Cigarette Use: not used alcohol intake: never substance use type: does not use caffeine: Yes (2) Type: carbonated beverages and tea frequency: 1-2 times per week seatbelt use: always do you feel safe at home: Yes ROS Constitutional Constitutional: Reports chills and fever(s); Denies fatigue or malaise Eyes Eyes: Denies blurry vision ENT HEENT: Denies headache(s) or nasal discharge Cardiovascular Cardiovascular: Denies chest pain, dyspnea on exertion or syncope Respiratory/Chest Respiratory/Chest: Denies cough, shortness of breath at rest or shortness of breath with exertion Gastrointestinal Gastrointestinal: Reports abdominal pain; Denies constipation, diarrhea, nausea or vomiting Genitourinary Genitourinary: Denies dysuria Neurologic Neurologic: Denies focal weakness, numbness or tremor(s) Psychiatric Psychiatric: Denies anxiety or depression Vital Signs Vital Signs Vital Signs: 10/24/23 05:36 10/24/23 05:41 10/24/23 06:00 Temperature 97.8 F 97.8 F 100.5 F H Temperature Source Temporal Oral Oral Pulse Rate 111 H 111 H Respiratory Rate 18 18 Blood Pressure 137/79 H 137/79 H Blood Pressure Mean 98 98 Blood Pressure Source Blood Pressure Position Blood Pressure Location Pulse Ox 97 97 Oxygen Delivery Method Room Air Room Air 10/24/23 06:41 10/24/23 08:00 10/24/23 08:27 Temperature 99.2 F H 98.2 F 98.2 F Temperature Source Oral Oral Pulse Rate 107 H 84 81 Respiratory Rate 22 H 21 H 21 H Blood Pressure 132/82 H 127/73 H 127/73 H Blood Pressure Mean 98 91 91 Blood Pressure Source Blood Pressure Position Blood Pressure Location Pulse Ox 98 99 98 Oxygen Delivery Method Room Air Room Air 10/24/23 10:00 Temperature 98.5 F Temperature Source Oral Pulse Rate 86 Respiratory Rate 16 Blood Pressure 110/65 Blood Pressure Mean 80 Blood Pressure Source Monitor Blood Pressure Position Semi-Fowlers Blood Pressure Location Left Arm Pulse Ox 100 Oxygen Delivery Method Room Air Weight Weight: 172 lb 9.951 oz Body Mass Index (BMI) 30.5 Physical Exam Narrative General: Alert, Oriented x3, Cooperative, No apparent distress HEENT: Atraumatic, PERRLA, EOMI, Normocephalic Oral: Moist Mucosa Neck: Supple, No JVD Lungs: Clear to auscultation, Normal air movement, No rhonchi, No wheeze, No rales Cardiovascular: Regular rate, Regular Rhythm, Normal S1, Normal S2, No murmurs Abdomen: Soft, Non Tender, Non-Distended, No Hepato-splenomegaly Extremities: No edema, Capillary Refill Less than 3 Seconds Skin: No rashes, No breakdown Musculoskeletal: No Tenderness to Palpation of Joints or Extremities Neurological: No focal neurological deficits, Motor Exam 5/5 strength throughout, Sensory exam intact to light touch and pain Psych/Mental Status: Normal Affect, Appropriate Results Lab / Micro Data 10/24/23 06:10 10/24/23 06:10 Labs: Laboratory Results - last 24 hr 10/24/23 06:10: WBC 18.4 H, RBC 4.23, Hgb 12.8, Hct 38.0, MCV 89.8, MCH 30.3, MCHC 33.7, RDW Std Deviation 38.6, RDW Coeff of Raffi 11.9, Plt Count 339, MPV 10.1, Immature Gran % (Auto) 0.500, Neut % (Auto) 87.8 H, Lymph % (Auto) 5.2 L, [place] % (Auto) 6.2, Eos % (Auto) 0.1, Baso % (Auto) 0.2, Absolute Neuts (auto) 16.2 H, Absolute Lymphs (auto) 0.95, Nucleated RBC % 0, PT 12.8, INR 1.0, APTT 24.7, Sodium 137, Potassium 3.2 L, Chloride 104, Carbon Dioxide 25.0, Anion Gap 8, BUN 7, Creatinine 0.73, Estim Creat Clear Calc 121.79, Est GFR (MDRD) Af Amer 129, Est GFR (MDRD) Non-Af 107, BUN/Creatinine Ratio 9.5 L, Glucose 122 H, Lactic Acid 2.3 H*, Calcium 8.7, Total Bilirubin 1.00, Direct Bilirubin 0.50 H, AST 142 H, ALT 135 H, Alkaline Phosphatase 180 H, Total Protein 7.0, Albumin 2.9 L, Globulin 4.1, Lipase 32 10/24/23 06:45: Urine Color Yellow, Urine Clarity Clear, Urine pH 7.0, Ur Specific [place] 1.005, Urine Protein Negative, Urine Glucose (UA) Normal, Urine Ketones Negative, Urine Occult Blood Negative, Urine Nitrite Negative, Urine Bilirubin Negative, Urine Urobilinogen Normal, Ur Leukocyte Esterase Negative, Urine RBC 0 SEEN, Urine WBC 0 SEEN, Ur Squamous Epith Cells 0-5 SEEN, Urine Bacteria 0 SEEN, Urine Mucus 0 SEEN 10/24/23 10:31: Lactic Acid 1.0 Micro: Microbiology 10/24/23 06:05 Mucosa - Nose SARS-CoV-2, Influenza & RSV (PCR) - Final Imaging Radiology Impression Abdomen/Pelvis CT 10/24/23 05:53 IMPRESSION: 1. Previous cholecystectomy. 2. No evidence for acute pathology. No demonstrated bile duct dilatation. Electronically Signed: Yoel Dasilva MD at 7:23 EDT , Chest CTA 10/24/23 06:05 IMPRESSION: No evidence for pulmonary embolism, aortic aneurysm, or aortic dissection. No evidence for acute cardiopulmonary pathology. Electronically Signed: Yoel Dasilva MD at 7:26 EDT , Assessment & Plan Assessment/Plan (1) Post procedure discomfort: (2) Abdominal pain: PLAN: Plan 1. Post ERCP abdominal pain with fever ? No obvious signs of infection despite leukocytosis being 18 which could still be reactive from the procedure and intervention yesterday ? Will continue with clear liquids ? Continue with IV Zosyn, blood cultures pending ? Will consult gastroenterology ? Will continue with IV fluids DVT: Ambulation 75 minutes was spent on direct patient care, including documentation as well as chart review and collaboration with colleagues Charges/Coding Visit Charges Inpatient E&M: 49480 Init Hosp L3
[2023-10-24] MEDS: 0.9% Normal Saline (250mL Bag) 250 ML 15 ML IV (13:55)
--- NOTE | 2023-10-24 17:09 | CON.PCM.GI_ITS ---
HPI Consult Data Date of Consult: 10/24/23 HPI Narrative Reason for Consultation: Abdominal pain HPI Narrative: HOWARD LOCO, is a 18-year-old female with past medical history of gastritis and choledocholithiasis. She underwent a laparoscopic cholecystectomy in July of this year. However she still had retained stones in the cystic duct and developed pain and jaundice and therefore had an ERCP yesterday. The patient had the procedure reportedly from approximately 1 PM to 3 PM and then was in PACU and discharged around 4/4:30 p.m.. She states she was doing well but during the night began with subjective fevers and chills and she took her temperature and it was elevated at 101.6. Secondary to the recent procedure and now the fever she contacted me and advised her to come into the hospital for evaluation. The patient states that other than the fevers and chills there is no overt symptoms such as dysuria nausea vomiting or diarrhea. She denies any chest pain cough or shortness of breath. Laboratory analysis in the ED had showed a white count at 18,000 with 87% neutrophils. Her INR was 1.0, PTT of 24.7, sodium 137, potassium 3.2, chloride 104, carbon dioxide of 25, creatinine is 0.73, BUN is 7. Her direct bilirubin was 0.5, AST 142, ALT 135, alkaline phosphatase 180. Her lipase was 32. She had urinalysis did not show any signs of infection. After a liter of IV fluids her lactic acid went from 2.3 down to 1. She had a CT a of the chest because she complained of some higher epigastric pain and possible chest pain. CT of the chest not show any signs of pulmonary embolism, infiltration or signs of perforation. She had a CT scan abdomen pelvis which was negative for any acute disease. At this time she still has a little bit of pain in the epigastric region with some mild nausea. 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 Smoking Status: Never smoker Electronic Cigarette Use: not used alcohol intake: never substance use type: does not use caffeine: Yes (2) Type: carbonated beverages and tea frequency: 1-2 times per week seatbelt use: always do you feel safe at home: Yes ROS Constitutional Constitutional: Reports chills and fever(s); Denies fatigue or malaise Eyes Eyes: Denies blurry vision ENT HEENT: Denies headache(s) or nasal discharge Cardiovascular Cardiovascular: Denies chest pain, dyspnea on exertion or syncope Respiratory/Chest Respiratory/Chest: Denies cough, shortness of breath at rest or shortness of breath with exertion Gastrointestinal Gastrointestinal: Reports abdominal pain; Denies constipation, diarrhea, nausea or vomiting Genitourinary Genitourinary: Denies dysuria Neurologic Neurologic: Denies focal weakness, numbness or tremor(s) Psychiatric Psychiatric: Denies anxiety or depression Physical Exam Narrative General: Alert, Oriented x3, Cooperative, No apparent distress HEENT: Atraumatic, PERRLA, EOMI, Normocephalic Oral: Moist Mucosa Neck: Supple, No JVD Lungs: Clear to auscultation, Normal air movement, No rhonchi, No wheeze, No rales Cardiovascular: Regular rate, Regular Rhythm, Normal S1, Normal S2, No murmurs Abdomen: Soft, Non Tender, Non-Distended, No Hepato-splenomegaly Extremities: No edema, Capillary Refill Less than 3 Seconds Skin: No rashes, No breakdown Musculoskeletal: No Tenderness to Palpation of Joints or Extremities Neurological: No focal neurological deficits, Motor Exam 5/5 strength throughout, Sensory exam intact to light touch and pain Psych/Mental Status: Normal Affect, Appropriate Lab / Micro Data 10/24/23 06:10 10/24/23 06:10 Labs: Laboratory Results - last 24 hr 10/24/23 06:10: WBC 18.4 H, RBC 4.23, Hgb 12.8, Hct 38.0, MCV 89.8, MCH 30.3, MCHC 33.7, RDW Std Deviation 38.6, RDW Coeff of Raffi 11.9, Plt Count 339, MPV 10.1, Immature Gran % (Auto) 0.500, Neut % (Auto) 87.8 H, Lymph % (Auto) 5.2 L, [place] % (Auto) 6.2, Eos % (Auto) 0.1, Baso % (Auto) 0.2, Absolute Neuts (auto) 16.2 H, Absolute Lymphs (auto) 0.95, Nucleated RBC % 0, PT 12.8, INR 1.0, APTT 24.7, Sodium 137, Potassium 3.2 L, Chloride 104, Carbon Dioxide 25.0, Anion Gap 8, BUN 7, Creatinine 0.73, Estim Creat Clear Calc 121.79, Est GFR (MDRD) Af Amer 129, Est GFR (MDRD) Non-Af 107, BUN/Creatinine Ratio 9.5 L, Glucose 122 H, L actic Acid 2.3 H*, Calcium 8.7, Total Bilirubin 1.00, Direct Bilirubin 0.50 H, A ST 142 H, ALT 135 H, Alkaline Phosphatase 180 H, Total Protein 7.0, Albumin 2.9 L, Globulin 4.1, Lipase 32 10/24/23 06:45: Urine Color Yellow, Urine Clarity Clear, Urine pH 7.0, Ur Specific [place] 1.005, Urine Protein Negative, Urine Glucose (UA) Normal, Urine Ketones Negative, Urine Occult Blood Negative, Urine Nitrite Negative, Urine Bilirubin Negative, Urine Urobilinogen Normal, Ur Leukocyte Esterase Negative, Urine RBC 0 SEEN, Urine WBC 0 SEEN, Ur Squamous Epith Cells 0-5 SEEN, Urine Bacteria 0 SEEN, Urine Mucus 0 SEEN 10/24/23 10:31: Lactic Acid 1.0 Micro: Microbiology 10/24/23 06:05 Mucosa - Nose SARS-CoV-2, Influenza & RSV (PCR) - Final Imaging Radiology Impression Abdomen/Pelvis CT 10/24/23 05:53 IMPRESSION: 1. Previous cholecystectomy. 2. No evidence for acute pathology. No demonstrated bile duct dilatation. Electronically Signed: Yoel Dasilva MD at 7:23 EDT , Chest CTA 10/24/23 06:05 IMPRESSION: No evidence for pulmonary embolism, aortic aneurysm, or aortic dissection. No evidence for acute cardiopulmonary pathology. Electronically Signed: Yoel Dasilva MD at 7:26 EDT , Assessment & Plan Assessment/Plan (1) Post procedure discomfort: (2) Abdominal pain: (3) SIRS (systemic inflammatory response syndrome): (4) Pyrexia: PLAN: 18-year-old woman with history of ascending cholangitis, choledocholithiasis and cholecystitis underwent ERCP with stone removal and temporary stent placement. The next day she underwent a cholecystectomy. Possible retained stones were noted in the common bile duct. She underwent repeat ERCP with a goal of removing the stent and removing stones from the common bile duct yesterday. However it was noted that she had multiple stones and not the common bile duct but actually a long channel cystic duct that originated from the major ampulla orifice. We then decided to do direct cholangioscopy?guided electrohydraulic lithotripsy (EHL) . Freehand intubated direct cholangioscopy with an ultra-slim upper endoscope provided adequate visualization of a multitude of stones. After ample saline solution irrigation as a medium for shock wave application, the procedure was started with low-power, 5 pulses per activation as settings, occasionally producing clouds of biliary sludge. At later stages, when larger, rather mobile EHL fragments were targeted, the settings were adapted to high power and 3 shots with continuous irrigation sustained, until only small EHL fragments easily extracted were left over. Only thereafter did a circumscribed thermal injury lesion of the biliary mucosa come to our attention, most likely representing inadvertent EHL-related ductal trauma. During the procedure itself, no apparent loss of visual control was noted; however, unnoticeable off-target shock wave transmission was possible, visually obscured by underwater spark ignition during treatment of mobile EHL fragments near the bile duct wall. Therefore I think her fevers, increased white blood cell count are secondary to thermal injury to her cystic duct. Recommendations: Continue antibiotics, IV fluids, await blood cultures, advance diet as tolerated. Charges/Coding Visit Charges Inpatient E&M: 12861 Init Hosp L3
[2023-10-24] MEDS: Acetaminophen 325 MG Tablet 650 MG PO (22:11)
[2023-10-25 03:03] VITALS: BP 126/72; PULSE 78; RESP 17; TEMP 36.6; O2SAT 99
[2023-10-25] MEDS: Piperacil/Tazobactam 3.375 GM in 0.9% Normal Saline (50mL MB+) 50 ML IV (05:31)
[2023-10-25] MEDS: 0.9% Normal Saline (1000mL) 1,000 ML 100 ML IV (05:31)
[2023-10-25 07:32] LABS: Absolute Neutrophil Count 5.2 X10^3/uL (2.0-7.7); Basophil# 0.06 X10^3/uL; Basophil% 0.8 % (0-1); Eosinophils% 2.8 % (0-5); Hematocrit 36.2 % (37-47); Hemoglobin 12.2 g/dL (12.0-15.0); Lymphocyte % 15.1 % (19-41); Mean Corp Hgb Conc 33.7 g/dL (32-36); Mean Corpuscular Hgb 30.8 pg (27.0-32.0); Mean Corpuscular Volume 91.4 fL (81-99); Mean Platelet Vol. 10.8 fl (6.2-12.0); Monocyte# 0.68 X10^3/uL; Monocyte% 9.4 % (0-10); NRBC Flagged by Analyzer 0 % (0-5); Neutrophil % 71.5 % (47-70); Platelet Count 278 K/mm3 (150-450); RBC Distribution Width CV 12.1 % (11.6-14.6); RBC Distribution Width SD 40.5 fl (35.1-43.9); Red Blood Count 3.96 M/mm3 (4.2-5.4); White Blood Count 7.3 K/mm3 (4.4-11.0)
[2023-10-25 07:51] VITALS: BP 110/61; PULSE 79; RESP 18; TEMP 37.6; O2SAT 96
[2023-10-25 08:50] LABS: ALB/GLOB Ratio 0.6 RATIO (0.9-2.4); AST(SGOT) 59 U/L (15-37); Alanine Aminotransfer ALT/SGPT 86 U/L (13-56); Albumin, Serum 2.4 g/dL (3.2-5.0); Alkaline Phosphatase 166 U/L (45-117); Anion Gap 5 (5-15); BUN 3 mg/dL (7-18); BUN/Creat Ratio 6.3 RATIO (10-20); Calcium,Total 8.1 mg/dL (8.5-10.1); Chloride 113 mmol/L (98-107); Creatinine, Serum 0.48 mg/dL (0.55-1.02); EST Glomerular Filtration Rate 176 mL/min (>60); Est Glom Filt Rate - Afr Amer 213 mL/min (>60); Estimated Creatinine Clearance 185.23 ml/min; Globulin 3.9 g/dL (2.2-4.2); Glucose 93 mg/dL (74-106); Potassium 2.7 mmol/L (3.5-5.1); Protein, Total 6.3 g/dL (6.4-8.2); Sodium Level 142 mmol/L (136-145)
[2023-10-25 09:14] LABS: Magnesium 1.8 mg/dL (1.6-2.6)
[2023-10-25] MEDS: Potassium Chloride Oral Tablet 20 MEQ 60 MEQ PO (09:26)
--- NOTE | 2023-10-25 10:04 | NURSING ---
verbal report given to amos Olivier Rn
--- NOTE | 2023-10-25 11:07 | CASEMGMT ---
FRANK FORTE Assessment: Face to Face with pt for initial transition planning/care coordination assessment. RN REANNA introduced self and role at [facility], pt voices understanding and consents to assessment. Pt is A&O x4 and answers all questions appropriately at this time. Pt lying in bed with father at bedside. Pt agreeable to assessment with father present. Care providers, pharmacy, and demographics verified/updated. Admitting Dx: possible cholangitis Strata Score: 2 PCP:Rodrigo Specialists:SRINATH [facility] [employer] Preferred Pharmacy: [facility] Insurance: [employer] Prescription Benefit: yes LNOK: Kaci Crowder, Living Arrangements: Pt lives with father in a two story home with 3 steps to enter. Pt is I in ADL/IADLs and denies concerns at home. Transportation: Pt drives self and denies concerns with transportation. DME:Denies HHC/SNF: Denies hx of Pt states no concerns with going home at time of dc. Pt states no further concerns/needs. CM to follow. Advised pt to ask CM if any further question/concerns/needs arise, voices understanding. Pt Goal: Home Plan: Home Aime MARIE CM
--- NOTE | 2023-10-25 12:34 | PCM.DC ---
Discharge Instructions Diet Discharge Diet: No restrictions Activity Discharge Activity: No Restrictions Follow Up Care Test Results: Test results from this visit will be discussed in further detail at your follow-up appointment, if applicable. Discharge Plan Admission Admit Date/Time: 10/24/23 08:22 Primary Reason for Your Visit: Fevers and abdominal pain Attending Provider: Bobby Krause Primary Care Provider: Crystal Wallace Consulting Providers: Jake Magaña Instructions Additional Instructions / Restrictions: Please take the antibiotics below twice daily for another 9 days to complete a 10-day course of antibiotics total. Follow-up in the office with Dr. Lopez as needed. Discharge Orders/Prescriptions Prescriptions: New ciprofloxacin HCl 500 mg tablet 500 mg PO BID 9 Days Qty: 18 0RF metronidazole 500 mg tablet 500 mg PO BID 9 Days Qty: 18 0RF Continued drospirenone-ethinyl estradiol 3-0.03 mg tablet 1 tab PO DAILY Referrals / Follow Up: Crystal Wallace MD [Primary Care Provider] - Disposition Disposition (needs filled in before D/C Order can be placed): Home, Self Care
--- NOTE | 2023-10-25 12:34 | PCM.DC.SUM ---
Providers Date of Admission: 10/24/23 Date of Discharge: 10/25/23 Primary Care Physician: Dr. Crystal Wallace MD Consultations 10/24/23 09:57 Consult: Gastroenterology Routine Consulting Provider: [facility] Reason for Consult: ? cholangitis EMERGENT Consult: No MD Notified: Yes Date Notified: 10/24/23 Time Notified: 08:23 Method of Notification: ED Physician Initiated Reason For Visit: POSSIBLE CHOLANGITIS Diagnosis Discharge Diagnosis (1) Post procedure discomfort: Status: Acute Code(s): G89.18 - Other acute postprocedural pain (2) Abdominal pain: Status: Acute Code(s): R10.9 - Unspecified abdominal pain (3) SIRS (systemic inflammatory response syndrome): Status: Acute Code(s): R65.10 - Systemic inflammatory response syndrome (SIRS) of non-infectious origin without acute organ dysfunction (4) Pyrexia: Status: Acute Code(s): R50.9 - Fever, unspecified Medications at Discharge Home Medications drospirenone 3 mg-ethinyl estradiol 0.03 mg tablet 1 tab PO DAILY control 05/12/23 ciprofloxacin HCl 500 mg tablet 500 mg PO BID 9 days #18 tabs 10/25/23 metronidazole 500 mg tablet 500 mg PO BID 9 days #18 tabs 10/25/23 Hospital Course Operations None Procedures - (CT abdomen pelvis, CTA chest) Summary of Care Provided Minutes Spent on Discharge: 35 Hospital Course: Patient is a 18-year-old female who presented [facility] ED on 10/24/2023 with post ERCP fever and abdominal pain. Short hospital course as noted below. Discharged home in stable condition on 10/24. 1. Post ERCP abdominal pain with fever, history of cholecystectomy ? GI followed. CT chest abdomen pelvis with IV contrast on admit with no acute intra-abdominal pathology, no bile duct dilatation, no intrathoracic abnormalities. Febrile to 100.5 F and leukocytosis of 18 K on admit but otherwise hemodynamically stable and no endorgan dysfunction, did not meet sepsis criteria. Per GI, during ERCP on 10/22 she had direct cholangioscopy?guided electrohydraulic lithotripsy done and there was thermal injury to her cystic duct noted; suspected that this was likely the source of her fevers and increased white blood cell count. However, treated with IV Zosyn while inpatient and discharged on ciprofloxacin and Flagyl to complete 10-day course of antibiotics total per GI recs. By hospital day 2, leukocytosis improved to normal range, diet advanced without issue and patient feeling much improved; was stable for discharge home with outpatient follow-up with GI as needed. She notably was admitted under inpatient status but improved more quickly than anticipated. Total clinical time spent by myself addressing the patient's medical issues, reviewing all the data, and collaborating with patient's care team: 35 minutes. Physical Exam Const alert, oriented x3, no apparent distress, healthy appearing and well nourished Constitutional Narrative: Pleasant young female, obese, laying comfortably in bed, conversing normally, in no acute distress. General Appearance: cooperative, comfortable, well kempt and well developed HEENT normocephalic, head/scalp atraumatic, hearing grossly normal bilaterally, nasal mucous membranes and turbinates normal and moist oral mucous membranes Eyes PERRL, EOMs intact bilaterally and conjunctivae normal Neck full ROM Chest inspection of chest normal Resp normal respiratory effort, normal air movement, no use of accessory muscles and clear to auscultation bilaterally Cardio regular rate, regular rhythm, no murmurs and peripheral pulses 2+ throughout GI normal to inspection, nondistended, normoactive bowel sounds, soft to palpation, non-tender and non-distended Back/Spine normal ROM Extremity normal to inspection, full ROM and no pedal edema Skin no rashes or lesions noted Neuro no focal motor deficits and no sensory deficits noted Speech: speech normal Psych mental status grossly normal Weight / BMI Weight Weight: 78.3 kg Body Mass Index (BMI) 30.5 ABG / Lab / Microbiology Data 10/25/23 06:23 10/25/23 06:23 Laboratory: Laboratory Results - last 24 hr 10/25/23 06:23: WBC 7.3, RBC 3.96 L, Hgb 12.2, Hct 36.2 L, MCV 91.4, MCH 30.8, MCHC 33.7, RDW Std Deviation 40.5, RDW Coeff of Raffi 12.1, Plt Count 278, MPV 10.8, Immature Gran % (Auto) 0.400, Neut % (Auto) 71.5 H, Lymph % (Auto) 15.1 L, [place] % (Auto) 9.4, Eos % (Auto) 2.8, Baso % (Auto) 0.8, Absolute Neuts (auto) 5.2, Absolute Lymphs (auto) 1.10, Nucleated RBC % 0, Sodium 142, Potassium 2.7 L*, Chloride 113 H, Carbon Dioxide 24.0, Anion Gap 5, BUN 3 L, Creatinine 0.48 L, Estim Creat Clear Calc 185.23, Est GFR (MDRD) Af Amer 213, Est GFR (MDRD) Non-Af 176, BUN/Creatinine Ratio 6.3 L, Glucose 93, Calcium 8.1 L, Magnesium 1.8, Total Bilirubin 1.20 H, AST 59 H, ALT 86 H, Alkaline Phosphatase 166 H, Total Protein 6.3 L, Albumin 2.4 L, Globulin 3.9, Albumin/Globulin Ratio 0.6 L Microbiology: Microbiology 10/24/23 06:05 Mucosa - Nose SARS-CoV-2, Influenza & RSV (PCR) - Final Meaningful Use Info Meaningful Use Meaningful Use Diagnoses (Choose all that apply): None applicable Ischemic Stroke Statin Dosing Therapy Reference: STATIN DOSE THERAPY REFERENCE: * Patients > 75 years receive moderate or high dose statin therapy. * Patients 75 years or YOUNGER should receive HIGH intensity statin dose unless contraindicated. You will be required to document reason for non-treatment if statin daily dose does not meet guidelines. HIGH DOSE STATIN THERAPY DAILY Atorvastatin > than or = to 40 mg Rosuvastatin > than or = to 20 mg Amlodipine + Atorvastatin > than or = to 2.5/40 mg Ezetimibe + Simvastatin 10/80 mg Simvastatin 80mg Discharge Plan Admission Admit Date/Time: 10/24/23 08:22 Primary Reason for Your Visit: Fevers and abdominal pain Attending Provider: Bobby Krause Primary Care Provider: Crystal Wallace Consulting Providers: Jake Magaña Instructions Additional Instructions / Restrictions: Please take the antibiotics below twice daily for another 9 days to complete a 10-day course of antibiotics total. Follow-up in the office with Dr. Lopez as needed. Discharge Orders/Prescriptions Prescriptions: New ciprofloxacin HCl 500 mg tablet 500 mg PO BID 9 Days Qty: 18 0RF metronidazole 500 mg tablet 500 mg PO BID 9 Days Qty: 18 0RF Continued drospirenone-ethinyl estradiol 3-0.03 mg tablet 1 tab PO DAILY Referrals / Follow Up: Crystal Wallace MD [Primary Care Provider] - Disposition Disposition (needs filled in before D/C Order can be placed): Home, Self Care Charges/Coding Visit Charges Inpatient E&M: 05435 Disch Hosp >30min
[2023-10-25 12:42] VITALS: BP 135/72; PULSE 87; RESP 14; TEMP 36.7; O2SAT 100
--- NOTE | 2023-10-25 13:33 | PN.GI_ITS ---
Subjective Subjective Patient is doing well and continues to be afebrile. She tolerated diet without any abdominal pain. Objective Data Objective Data Vital Signs: Vital Signs Temp Pulse Resp BP Pulse Ox O2 Del Method 98.1 F 87 14 135/72 H 100 Room Air 10/25/23 12:42 10/25/23 12:42 10/25/23 12:42 10/25/23 12:42 10/25/23 12:42 10/25/23 12:42 Oxygen Delivery Method Room Air Weight: 172 lb 9.951 oz Body Mass Index (BMI) 30.5 Intake & Output: Intake and Output for Last 24 Hours 10/23/23 10/24/23 10/25/23 23:59 23:59 23:59 Intake Total 3516.23 / 3516.23 1290 / 1290 Balance 3516.23 / 3516.23 1290 / 1290 Lab / Micro Data 10/25/23 06:23 10/25/23 06:23 Labs: Laboratory Results - last 24 hr 10/25/23 06:23: WBC 7.3, RBC 3.96 L, Hgb 12.2, Hct 36.2 L, MCV 91.4, MCH 30.8, MCHC 33.7, RDW Std Deviation 40.5, RDW Coeff of Raffi 12.1, Plt Count 278, MPV 10.8, Immature Gran % (Auto) 0.400, Neut % (Auto) 71.5 H, Lymph % (Auto) 15.1 L, [place] % (Auto) 9.4, Eos % (Auto) 2.8, Baso % (Auto) 0.8, Absolute Neuts (auto) 5.2, Absolute Lymphs (auto) 1.10, Nucleated RBC % 0, Sodium 142, Potassium 2.7 L*, Chloride 113 H, Carbon Dioxide 24.0, Anion Gap 5, BUN 3 L, Creatinine 0.48 L , Estim Creat Clear Calc 185.23, Est GFR (MDRD) Af Amer 213, Est GFR (MDRD) Non- Af 176, BUN/Creatinine Ratio 6.3 L, Glucose 93, Calcium 8.1 L, Magnesium 1.8, T otal Bilirubin 1.20 H, AST 59 H, ALT 86 H, Alkaline Phosphatase 166 H, Total Protein 6.3 L, Albumin 2.4 L, Globulin 3.9, Albumin/Globulin Ratio 0.6 L Micro: Microbiology 10/24/23 06:05 Mucosa - Nose SARS-CoV-2, Influenza & RSV (PCR) - Final Physical Exam Const alert, oriented x3, no apparent distress, healthy appearing and well nourished General Appearance: cooperative, comfortable, well kempt and well developed HEENT normocephalic, head/scalp atraumatic, hearing grossly normal bilaterally, nasal mucous membranes and turbinates normal and moist oral mucous membranes Eyes PERRL, EOMs intact bilaterally and conjunctivae normal Neck full ROM Chest inspection of chest normal Resp normal respiratory effort, normal air movement, no use of accessory muscles and clear to auscultation bilaterally Cardio regular rate, regular rhythm, no murmurs and peripheral pulses 2+ throughout GI normal to inspection, nondistended, normoactive bowel sounds, soft to palpation, non-tender and non-distended Back/Spine normal ROM Extremity normal to inspection, full ROM and no pedal edema Skin no rashes or lesions noted Neuro no focal motor deficits and no sensory deficits noted Speech: speech normal Psych mental status grossly normal Assessment & Plan Assessment/Plan (1) Post procedure discomfort: (2) Abdominal pain: (3) SIRS (systemic inflammatory response syndrome): (4) Pyrexia: PLAN: 18-year-old woman with history of ascending cholangitis, choledocholithiasis and cholecystitis underwent ERCP with stone removal and temporary stent placement. The next day she underwent a cholecystectomy. Possible retained stones were noted in the common bile duct. She underwent repeat ERCP with a goal of removing the stent and removing stones from the common bile duct yesterday. However it was noted that she had multiple stones and not the common bile duct but actually a long channel cystic duct that originated from the major ampulla orifice. We then decided to do direct cholangioscopy?guided electrohydraulic lithotripsy (EHL) . Freehand intubated direct cholangioscopy with an ultra-slim upper endoscope provided adequate visualization of a multitude of stones. After ample saline solution irrigation as a medium for shock wave application, the procedure was started with low-power, 5 pulses per activation as settings, occasionally producing clouds of biliary sludge. At later stages, when larger, rather mobile EHL fragments were targeted, the settings were adapted to high power and 3 shots with continuous irrigation sustained, until only small EHL fragments easily extracted were left over. Only thereafter did a circumscribed thermal injury lesion of the biliary mucosa come to our attention, most likely representing inadvertent EHL-related ductal trauma. During the procedure itself, no apparent loss of visual control was noted; however, unnoticeable off-target shock wave transmission was possible, visually obscured by underwater spark ignition during treatment of mobile EHL fragments near the bile duct wall. Therefore I think her fevers, increased white blood cell count are secondary to thermal injury to her cystic duct. Recommendations: Continue antibiotics, IV fluids, await blood cultures, advance diet as tolerated. 10/25/2023-Labs are improving. Her white count is normal. She is tolerating a diet without any abdominal pain. She can be discharged to home on oral antibiotics twice a day for 10 days. Follow-up in the clinic and repeat labs in a week. Charges/Coding Visit Charges Inpatient E&M: [address] [facility] L[facility]
== END 2023-10-25 12:59 | disposition home or self-care (01) | DRG 395 ==
LOC: ED 08:24 → MS3 08:53
PROVIDERS: Admitting Provider Family Medicine; Emergency Provider Emergency Medicine; PCP Internal Medicine; Visit Provider Hospitalist
DX: K91.81 Other intraoperative complications of digestive system (principal); G89.18 Other acute postprocedural pain; K21.9 Gastro-esophageal reflux disease without esophagitis; K82.8 Other specified diseases of gallbladder; K80.20 Calculus of gallbladder without cholecystitis without obstruction; R50.82 Postprocedural fever; R10.11 Right upper quadrant pain; R10.13 Epigastric pain; Z90.49 Acquired absence of other specified parts of digestive tract; Z79.899 Other long term (current) drug therapy
CPT/HCPCS: 36415; 71275; 74177; 80048; 80053; 80076; 81001; 83605; 83690; 83735; 85025; 85610; 85730; 87040; 87631; 99284; J7030; J7050; Q9967; A4216

== ENCOUNTER → 2024-03-10 | Outpatient (CLI) | payer OTHER, SELFPAY ==
[2024-03-10 12:21] LABS: Absolute Lymphocyte Count 2.76 X10^3/uL (0.83-4.51); Absolute Neutrophil Count 6.9 X10^3/uL (2.0-7.7); Basophil# 0.07 X10^3/uL; Basophil% 0.6 % (0-1); Eosinophil# 0.19 X10^3/uL; Eosinophils% 1.8 % (0-5); Hematocrit 42.9 % (37-47); Hemoglobin 13.9 g/dL (12.0-15.0); Lymphocyte # 2.76 X10^3/ul (0.83-4.51); Lymphocyte % 25.6 % (19-41); Mean Corp Hgb Conc 32.4 g/dL (32-36); Mean Corpuscular Volume 92.7 fL (81-99); Monocyte# 0.84 X10^3/uL; Monocyte% 7.8 % (0-10); NRBC Flagged by Analyzer 0 % (0-5); Neutrophil # 6.88 X10^3/uL (2.7-7.7); Neutrophil % 63.8 % (47-70); Platelet Count 383 K/mm3 (150-450); RBC Distribution Width CV 11.9 % (11.6-14.6); RBC Distribution Width SD 40.7 fl (35.1-43.9); Red Blood Count 4.63 M/mm3 (4.2-5.4); White Blood Count 10.8 K/mm3 (4.4-11.0)
[2024-03-10 13:37] LABS: ALB/GLOB Ratio 0.8 RATIO (0.9-2.4); AST(SGOT) 21 U/L (15-37); Alanine Aminotransfer ALT/SGPT 36 U/L (13-56); Albumin, Serum 3.3 g/dL (3.2-5.0); Alkaline Phosphatase 90 U/L (45-117); Anion Gap 8 (5-15); BUN 7 mg/dL (7-18); BUN/Creat Ratio 10.4 RATIO (10-20); Calcium,Total 8.9 mg/dL (8.5-10.1); Chloride 104 mmol/L (98-107); Creatinine, Serum 0.67 mg/dL (0.55-1.02); EST Glomerular Filtration Rate 118 mL/min (>60); Est Glom Filt Rate - Afr Amer 143 mL/min (>60); Glucose 88 mg/dL (74-106); Potassium 3.6 mmol/L (3.5-5.1); Protein, Total 7.3 g/dL (6.4-8.2); Sodium Level 138 mmol/L (136-145)
[2024-03-10 18:35] LABS: Vitamin D,25 Hydroxy 9.2 ng/mL
== END | disposition home or self-care (01) ==
LOC: BIMLAB 09:23
PROVIDERS: PCP Internal Medicine; Referring Provider Internal Medicine; Visit Provider Internal Medicine
DX: F41.9 Anxiety disorder, unspecified (principal); F32.A Depression, unspecified
CPT/HCPCS: 36415; 80053; 82306; 84443; 85025